=== PATIENT | female | born 1950 | race Caucasian/White ===

== ENCOUNTER 2022-05-21 05:56 | Observation (INO) | payer OTHER ==
--- NOTE | 2022-05-16 09:24 | RAD REPORT ---
EXAM DESCRIPTION: RAD - Chest Pa And Lat (2 Views) - 05/16/2022 9:03 am CLINICAL HISTORY: pre op for surgery Chest pain. COMPARISON: Chest Pa And Lat (2 Views) dated 12/23/2019; Chest Pa And Lat (2 Views) dated 04/23/2017 FINDINGS: Mild interstitial pulmonary edema. The heart is moderately enlarged. No displaced fracture s. IMPRESSION: Mild CHF.
[2022-05-16 09:26] LABS: Absolute Lymphocytes (CBC) 2.7 K/uL (0.7-4.9); Hematocrit 37.6 % (36.0-45.0); Lymphocytes % 31.7 % (15.3-44.8); MCV 85.8 fL (80-100); MPV 9.5 fL (7.6-11.3); RBC Red Blood Cell Count 4.38 M/uL (3.86-4.86)
[2022-05-16 09:30] LABS: Protime INR 0.98
[2022-05-16 09:49] LABS: Specific Gravity 1.006 (1.005-1.030); Urine Bilirubin NEGATIVE (Negative); Urine Blood Negative (Negative); Urine Clarity Clear (Clear); Urine Color Colorless (Yellow); Urine Glucose NEGATIVE (Negative); Urine Protein NEGATIVE (Negative); Urine Urobilinogen Normal (Normal)
[2022-05-16 09:51] LABS: Albumin 4.2 g/dL (3.4-5.0); Bilirubin Total 0.7 mg/dL (0.2-1.0); Protein, Total 8.4 g/dL (6.4-8.2)
[2022-05-20 08:33] LABS: SARS-CoV-2 Antigen Rapid Res Negative (Negative)
[2022-05-21] MEDS ORDERED: TRANEXAMIC ACID 1,000 MG/10 ML VIAL IV ONE (06:23)
[2022-05-21] MEDS ORDERED: CELECOXIB 100 MG CAPSULE ONE (06:25)
[2022-05-21] MEDS ORDERED: CEFAZOLIN SODIUM 2 GM/VIAL ONE (06:26)
[2022-05-21] MEDS ORDERED: Oxycodone HCl/Acetaminophen 1 TAB TAB ONE (06:26)
[2022-05-21] MEDS ORDERED: GABAPENTIN 100 MG CAP ONE (06:26)
[2022-05-21] MEDS ORDERED: Ringers Lactate 1,000 ML IV ONE ×2 (06:27→08:48)
[2022-05-21] MEDS ORDERED: ACETAMINOPHEN 500 MG TAB ONE (06:27)
[2022-05-21] MEDS ORDERED: LIDOCAINE 1% MPF 5 ML VIAL ONE (06:28)
[2022-05-21] MEDS ORDERED: dexAMETHasone 10 MG/ML VIAL ONE ×2 (06:28→07:41)
[2022-05-21] MEDS ORDERED: MIDAZOLAM HCL 2 MG/2 ML INJ ONE (06:29)
[2022-05-21] MEDS ORDERED: EPINEPHRINE/PF 1 MG/ML AMP ONE (06:29)
[2022-05-21] MEDS ORDERED: HYDROMORPHONE HCL 1 MG/ML INJ ONE (06:29)
[2022-05-21] MEDS ORDERED: FENTANYL CITR 100 MCG/2 ML ONE (06:29)
[2022-05-21] MEDS ORDERED: BUPIVACAINE 0.25% PF 30 ML VIAL ONE (06:30)
[2022-05-21] MEDS ORDERED: LIDOCAINE 2% MPF 5 ML VIAL ONE (07:29)
[2022-05-21] MEDS ORDERED: propofoL 200 MG/20 ML VIAL IV ONE (07:29)
[2022-05-21] MEDS ORDERED: NS 0.9% VIAL 20 ML ONE ×2 (07:37→07:49)
[2022-05-21] MEDS ORDERED: ONDANSETRON 4 MG/2 ML VIAL ONE (07:42)
[2022-05-21] MEDS ORDERED: KETAMINE HCL 500 MG/5 ML VIAL ONE (07:49)
[2022-05-21] MEDS ORDERED: DOCUSATE NA 100 MG CAP PO PRN (10:04)
[2022-05-21] MEDS ORDERED: ONDANSETRON 4 MG/2 ML VIAL IV PRN (10:04)
--- NOTE | 2022-05-21 10:13 | P.BOP ---
Preoperative diagnosis: left knee djd Postoperative diagnosis: same Primary procedure: left tka Estimated blood loss: 100 ccs Anesthesia: General Complications: None Transferred to: Recovery Room Condition: Good
--- OUTSIDE RECORDS SUMMARY | 2022-05-21 10:45 | XMS REPORT | Continuity of Care Document ---
:1950 Author Organization [facility] t Address [address] [place] [address] Care Team Providers Name Role Phone Niall Pederson Attending Clinician Unavailable Aleta Tellez Attending Clinician Unavailable Jorge Jacobs Attending Clinician Mazin STEWART, Deloris Attending Clinician Unavailable Jazmin PIZARRO, Nela Hannon Attending Clinician Gab Gill MD Attending Clinician [facility] Attending Clinician Unavailable Colleen Perea Attending Clinician Doctor Unassigned, [place] Attending Clinician Unavailable Aleta Tellez Admitting Clinician Unavailable J Carlos Rodrigez Admitting Clinician Unavailable Gab Gill MD Admitting Clinician Payers Payer Name Policy Type Policy Number Effective Date Expiration Date S fl[place] [employer] MEDICARE ADV [id number] 2019 00:00:00 Problems Condition Condition Condition Status Onset Resolution Last Treating Co mments Source Name Details Category Date Date Treatment Clinician Date Acute on Acute on Disease Active Unive rs chronic chronic 7-25 [place] 00 Medical (congestiv (congestiv Br anch e heart e heart failure), failure), NYHA class NYHA class 3 3 Elevated Elevated Disease Active Unive rs troponin I troponin I 7-25 it y of level level 00:00: [place] [facility] Essential Essential Disease Active Uni vers hypertensi hypertensi 7-25 it y of on on 00:00: [place] [facility] VHD VHD Disease Active Univers (valvular (valvular 7-25 ity of heart heart 00:00: [place] disease) disease) 00 Medica l Branch Pulmonary Pulmonary Disease Active Uni vers hypertensi hypertensi 7-25 it y of on on 00:00: [place] 00 Medical Branch NSTEMI NSTEMI Disease Active Univers (non-ST (non-ST 7-24 ity of elevated elevated 00:00: [place] myocardial myocardial 00 Me dical infarction infarction Br anch ) ) WEIGHT WEIGHT Diagnosis Active 2011-04-16 Me moria LOSS LOSS -17 14:34:00 l Active 00:00: Edgar 04/16/2011 00 [facility] [place] History of History 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:31:24 l disorder disorder Chirag n (context-d (context-d ependent ependent category) category) Active Problem 10/14/2020 [facility] Hypertensi Hypertens Problem Active 2020-10-14 Memoria ve lavonne 01:31:24 l disorder, disorder, Herm jeff systemic systemic arterial arterial (disorder) (disorder) Active Problem 10/14/2020 [facility] Hyperlipid Hyperlipi Problem Active 2020-10-14 Memoria emia demia 01:31:24 l (disorder) (disorder) He rmann Active Problem 10/14/2020 [facility] Hypothyroi Hypothyro Problem Active 2020-10-14 Memoria dism idism 01:31:24 l (disorder) (disorder) He rmann Active Problem 10/14/2020 [facility] Lumbar Lumbar Problem Active 2020-10-14 Chavez sukhdeep radiculopa radiculopa 01:31:24 l thy thy Edgar (disorder) (disorder) Active Problem 10/14/2020 [facility] Neuropathy Neuropath Problem Active 2020-10-14 Memoria of lower y of lower 01:31:24 l limb limb [place] (disorder) (disorder) Active Problem 10/14/2020 [facility] Obese Obese Problem Active 2020-10-14 Memor ia class I class I 01:31:24 l (finding) (finding) Annabelle aguilar Active Problem 10/14/2020 [facility] Paresthesi Paresthes Problem Active 2020-10-14 Memoria a ia 01:31:24 l (finding) (finding) Annabelle aguilar Active Problem 10/14/2020 [facility] [id number] Primary Problem Comm on osteoarthr Spirit itis of - [facility] left knee [facility] [id number] Pain, [place] [id number] joint, [facility] knee, left - [facility] No known No known Disease Unive rs active active ity of problems problems [facility] Fibromyalg Fibromyal Problem Active 2020-10-14 Memoria ia jeff 01:31:24 l (disorder) (disorder) Khanh luceroann Active Problem 10/14/2020 [facility] Allergies, Adverse Reactions, Alerts Allergy Allergy Status Severity Reaction(s) Onset Inactive Treating Comm ents Source Name Type Date Date Clinician No Known DA Active [facility] [place] No Known DA Active [facility] [place] NO KNOWN Drug Active Univers ALLERGIE Class [facility] Social History Social Habit Start Date Stop Date Quantity Comments Source History of Tobacco [facility] Sex Assigned At [facility] miguel - [facility] Exposure to Yes [facility] SARS-CoV-2 (event) Medica l Branch Social History 2019-06-18 2019-06-18 [facility] marsha 19:50:10 19:50:10 Smoking Status Start Date Stop Date Source Never Smoker [facility] Medications Ordered Filled Start Stop Current Ordering Indication Dosage Frequency Signature Comments Components Source Medication Medication Date Date Medication? Clinician (SIG) Name Name spironolact Yes [id number] 50mg Take 1 Univers one 50 mg 7-26 tablet by ity o f tablet 00:00: mouth [place] 00 daily. Medical Branch spironolact Yes [id number] 50mg Take 1 Univers one 50 mg 7-26 tablet by ity o f tablet 00:00: mouth [place] 00 daily. [facility] aspirin 81 2020-0 Yes 81mg Take 81 mg U nivers mg chewable 7-25 by mouth ity of tablet 20:38: daily. [address] aspirin 81 2020-0 Yes 81mg Take 81 mg U nivers mg chewable 7-25 by mouth ity of tablet 20:38: daily. [address] spironolact 2020-0 Yes 50mg 50 mg, Univ ers one 7-25 Oral, ity of (ALDACTONE) 14:00: [place] 50 00 First dose Medi betsey mg on [facility] 10/23/19 at 0900, Until Discontinu ed, Routine metoprolol 2020-0 Yes 50mg 50 mg, Unive rs succinate 7-25 Oral, ity of XL (TOPROL 14:00: DAILY, [place] XL) tablet 00 First dose Med ical 50 mg on [facility] 10/23/19 at 0900, Until Discontinu ed, Routine liothyronin 2020-0 Yes 10ug 10 mcg, Uni vers e (CYTOMEL) 7-25 Oral, ity of tablet 10 14:00: DAILY, [place] mcg 00 First dose Medical on [facility] 10/23/19 at 0900, Until Discontinu ed, Routine estradiol 2020-0 Yes 1mg 1 mg, Univers (ESTRACE) 7-25 Oral, ity of tablet 1 mg 14:00: DAILY, [place] 00 First dose Medical on [facility] 10/23/19 at 0900, Until Discontinu ed, Routine atorvastati 2020-0 Yes 20mg 20 mg, Univ ers n (LIPITOR) 7-25 Oral, ity of tablet 20 14:00: DAILY, [place] mg 00 First dose Medical on [facility] 10/23/19 at 0900, Until Discontinu ed, Routine aspirin 2020-0 Yes 81mg 81 mg, Univers chewable 7-25 Oral, ity of tablet 81 14:00: DAILY, [place] mg 00 First dose Medical on [facility] 10/23/19 at 0900, Until Discontinu ed, Routine Sliding 2020-0 Yes Subcutaneo Univ ers Scale 7-25 us, AC+HS, ity of Insulin - 12:30: [place] Aspart 00 on [facility] (NOVOLOG) + 10/23/19 at Br anch Fsbg 0730, Testing Until Discontinu ed, Routine levothyroxi 2020-0 Yes 137ug 137 mcg, U nivers ne 7-25 Oral, ity of (SYNTHROID) 11:00: QAM-0600, [place] tablet 137 00 First dose Med ical mcg on Sat Branch 10/23/19 at 0600, Until Discontinu ed, Routine pregabalin 2020-0 Yes 100mg 100 mg, Uni vers (LYRICA) 7-25 Oral, TID, ity o f capsule 100 01:00: First dose [place] mg 00 on Fri Medical 10/22/19 at Branch 2000, Until Discontinu ed, Routine
hotel staff member approving Restricted medication : MEGADC furosemide 2020-0 Yes [id number] 40mg Take 1 Univers 40 mg 7-25 tablet by ity of tablet 00:00: mouth [place] 00 every Medical morning Branch and evening. furosemide 2020-0 Yes [id number] 40mg Take 1 Univers 40 mg 7-25 tablet by ity of tablet 00:00: mouth [place] 00 every Medical morning Branch and evening. furosemide 2020-0 Yes 40mg 40 mg, IV Un darryn (LASIX) 10-21 Push, ity of injection 22:00: Q12H, [place] 40 mg 00 First dose Medical on Fri Branch 10/22/19 at 1700, Until Discontinu ed, Routine traMADol 2020-0 2020- No 50mg 50 mg, Univer s (ULTRAM) 10-21 07- Oral, ity of tablet 50 21:48: 21:47 Q8HPRN, [place] mg 19 :19 Starting Medical Fri Branch 10/22/19 at 1648, Until 10/24/19 at 1647, Routine, Pain (scale 4-6) HYDROcodone 2020-0 Yes 1{tbl} 1 tablet, Univers -acetaminop 10-21 Oral, ity of hen (NORCO) 21:48: Q6HPRN, Rob as 10-325 mg 13 Starting Medica l tablet 1 Fri Branch tablet 10/22/19 at 1648, Until Discontinu ed, Routine, Pain (scale 7-10) acetaminoph 2020-0 Yes 650mg 650 mg, Un darryn en 10-21 Oral, ity of (TYLENOL) 21:47: Q6HPRN, [place] tablet 650 54 Starting Medic al mg Fri [place] 10/22/19 at 1647, Until Discontinu ed, Routine, Pain (scale 1-3) iohexol 2019-0 2020- No 100mL 100 mL, Unive rs (OMNIPAQUE 10-21 Intravenou it y of 350 19:00: 18:36 s, ONCE, 1 [place] BULK-100 00 :00 dose, Fri Medica l mL) 10/22/19 at Branch injection 1400, 100 mL Routine dexamethaso 2019-2019- No 10mg 10 mg, IV Univers ne 10-21 Push, ity of (DECADRON 17:15: 16:39 ONCE, 1 [place] PHOSPHATE) 00 :00 dose, Fri Medi betsey injection 10/22/19 at Bran ch 10 mg 1215, STAT hydralAZINE 2019- 2020- No 10mg 10 mg, Uni vers (APRESOLINE 10-21 Intravenou i ty of ) injection 17:15: 16:39 s, ONCE [place] 10 mg 00 :00 NOW, 1 Medical dose, Fri [place] 10/22/19 at 1215, Routine aspirin 2019- 2020- No 325mg 325 mg, Unive rs tablet 325 10-21 Oral, ity of mg 17:15: 16:39 ONCE, 1 [place] 00 :00 dose, Fri Medical 10/22/19 at Branch 1215, STAT albuterol 2019-0 2020- No [id number] 2{puff} Inhale 2 Univers (VENTOLIN 10-21 08-24 Puffs ity of HFA) 90 00:00: 04:59 every 6 [place] mcg/actuati 00 :00 (six) Medical on inhaler hours as Branc h needed for Shortness of Breath for up to 30 days. albuterol 2020-0 2020- No [id number] 2{puff} Inhale 2 Univers (VENTOLIN 7-24 08-24 Puffs ity of HFA) 90 00:00: 04:59 every 6 [place] mcg/actuati 00 :00 (six) Medical on inhaler hours as Branc h needed for Shortness of Breath for up to 30 days. albuterol 2020-0 2020- No [id number] 2{puff} Inhale 2 Univers (VENTOLIN 7- 08-24 Puffs ity of HFA) 90 00:00: 04:59 every 6 [place] mcg/actuati 00 :00 (six) Medical on inhaler hours as Branc h needed for Shortness of Breath for up to 30 days. albuterol 2019-0 2020- No [id number] 2{puff} Inhale 2 Univers (VENTOLIN 7-24 08-24 Puffs ity of HFA) 90 00:00: 04:59 every 6 [place] mcg/actuati 00 :00 (six) Medical on inhaler hours as Branc h needed for Shortness of Breath for up to 30 days. albuterol 2019-0 2020- No [id number] 2{puff} Inhale 2 Univers (VENTOLIN 7-24 08-24 Puffs ity of HFA) 90 00:00: 04:59 every 6 [place] mcg/actuati 00 :00 (six) Medical on inhaler hours as Branc h needed for Shortness of Breath for up to 30 days. albuterol 2019-0 2019- No [id number] 2{puff} Inhale 2 Univers (VENTOLIN 7-24 08-24 Puffs ity of HFA) 90 00:00: 04:59 every 6 [place] mcg/actuati 00 :00 (six) Medical on inhaler hours as Branc h needed for Shortness of Breath for up to 30 days. albuterol 2019-2019- No [id number] 2{puff} Inhale 2 Univers (VENTOLIN 7-24 08-24 Puffs ity of HFA) 90 00:00: 04:59 every 6 [place] mcg/actuati 00 :00 (six) Medical on inhaler hours as Branc h needed for Shortness of Breath for up to 30 days. metoprolol 2020-0 Yes 50mg Take 50 mg U nivers succinate 7-23 by mouth ity of XL 50 mg 24 00:00: daily. [place] hr tablet 00 Medical Branch metoprolol 2020-0 Yes 50mg Take 50 mg U nivers succinate 7-23 by mouth ity of XL 50 mg 24 00:00: daily. [place] hr tablet 00 Medical Branch metoprolol 2020-0 Yes Univers succinate 7-23 ity of XL 50 mg 24 00:00: [place] hr tablet 00 Medical Branch metoprolol 2020-0 Yes Univers succinate 7-23 ity of XL 50 mg 24 00:00: [place] hr tablet 00 Medical Branch metoprolol 2020-0 Yes Univers succinate 7-23 ity of XL 50 mg 24 00:00: [place] hr tablet 00 Medical Branch metoprolol 2020-0 Yes Univers succinate 7-23 ity of XL 50 mg 24 00:00: [place] hr tablet 00 Medical Branch metoprolol 2020-0 Yes Univers succinate 7-23 ity of XL 50 mg 24 00:00: [place] hr tablet 00 Medical Branch meloxicam 2020-0 Yes TAKE 1 Univer s 7.5 mg 7-16 TABLET BY ity of tablet 00:00: MOUTH [place] 00 TWICE A Medical DAY Branch NEEDED meloxicam 2020-0 Yes TAKE 1 Univer s 7.5 mg 7-16 TABLET BY ity of tablet 00:00: MOUTH [place] 00 TWICE A Medical DAY Branch NEEDED meloxicam 2020-0 Yes TAKE 1 Univer s 7.5 mg 7-16 TABLET BY ity of tablet 00:00: MOUTH [place] 00 TWICE A Medical DAY Branch NEEDED meloxicam 2020-0 Yes TAKE 1 Univer s 7.5 mg 7-16 TABLET BY ity of tablet 00:00: MOUTH [place] 00 TWICE A Medical DAY Branch NEEDED meloxicam 2020-0 Yes TAKE 1 Univer s 7.5 mg 7-16 TABLET BY ity of tablet 00:00: MOUTH [place] 00 TWICE A Medical DAY Branch NEEDED meloxicam 2020-0 Yes TAKE 1 Univer s 7.5 mg 7-16 TABLET BY ity of tablet 00:00: MOUTH [place] 00 TWICE A Medical DAY Branch NEEDED meloxicam 2020-0 Yes TAKE 1 Univer s 7.5 mg 7-16 TABLET BY ity of tablet 00:00: MOUTH [place] 00 TWICE A Medical DAY Branch NEEDED hydroCHLORO 2020-0 Yes 12.5mg Take 12.5 Univers thiazide 7-10 mg by ity of 12.5 mg 00:00: mouth [place] tablet 00 daily. Medical Branch hydroCHLORO 2020-0 Yes 12.5mg Take 12.5 Univers thiazide 7-10 mg by ity of 12.5 mg 00:00: mouth [place] tablet 00 daily. Medical Branch hydroCHLORO 2020-0 Yes 12.5mg Take 12.5 Univers thiazide 7-10 mg by ity of 12.5 mg 00:00: mouth [place] tablet 00 daily. Medical Branch hydroCHLORO 2020-0 Yes 12.5mg Take 12.5 Univers thiazide 7-10 mg by ity of 12.5 mg 00:00: mouth [place] tablet 00 daily. Medical Branch hydroCHLORO 2020-0 Yes 12.5mg Take 12.5 Univers thiazide 7-10 mg by ity of 12.5 mg 00:00: mouth [place] tablet 00 daily. Medical Branch hydroCHLORO 2020-0 2020- No 12.5mg Take 12.5 Univers thiazide 7-10 07-25 mg by ity of 12.5 mg 00:00: 00:00 mouth [place] tablet 00 :00 daily. Medical Indication Branch s: Taking PRN for swelling in legs pregabalin 2020-0 Yes TAKE 1 Unive rs 100 mg 7-04 CAPSULE BY ity of capsule 00:00: MOUTH THREE Medical TIMES A Branch DAY pregabalin 2020-0 Yes TAKE 1 Unive rs 100 mg 7-04 CAPSULE BY ity of capsule 00:00: MOUTH THREE Medical TIMES A Branch DAY pregabalin 2020-0 Yes TAKE 1 Unive rs 100 mg 7-04 CAPSULE BY ity of capsule 00:00: MOUTH THREE Medical TIMES A Branch DAY pregabalin 2020-0 Yes TAKE 1 Unive rs 100 mg 7-04 CAPSULE BY ity of capsule 00:00: MOUTH THREE Medical TIMES A Branch DAY pregabalin 2020-0 Yes TAKE 1 Unive rs 100 mg 7-04 CAPSULE BY ity of capsule 00:00: MOUTH THREE Medical TIMES A Branch DAY pregabalin 2020-0 Yes TAKE 1 Unive rs 100 mg 7-04 CAPSULE BY ity of capsule 00:00: MOUTH THREE Medical TIMES A Branch DAY pregabalin 2020-0 Yes TAKE 1 Unive rs 100 mg 7-04 CAPSULE BY ity of capsule 00:00: MOUTH THREE Medical TIMES A Branch DAY levothyroxi 2020-0 Yes 137ug Take 137 U nivers ne 137 mcg 6-06 mcg by ity of tablet 00:00: mouth. Medical Branch levothyroxi 2020-0 Yes 137ug Take 137 U nivers ne 137 mcg 6-06 mcg by ity of tablet 00:00: mouth. Medical Branch levothyroxi 2020-0 Yes 137ug Take 137 U nivers ne 137 mcg 6-06 mcg by ity of tablet 00:00: mouth. Medical Branch levothyroxi 2020-0 Yes 137ug Take 137 U nivers ne 137 mcg 6-06 mcg by ity of tablet 00:00: mouth. [facility] levothyroxi 2020-0 Yes 137ug Take 137 U nivers ne 137 mcg 6-06 mcg by ity of tablet 00:00: mouth. [facility] levothyroxi 2020-0 Yes 137ug Take 137 U nivers ne 137 mcg 6-06 mcg by ity of tablet 00:00: mouth. [facility] levothyroxi 2020-0 Yes 137ug Take 137 U nivers ne 137 mcg 6-06 mcg by ity of tablet 00:00: mouth. [facility] estradiol 1 2020-0 Yes 1mg Take 1 mg U nivers mg tablet 5-20 by mouth ity of 00:00: daily. [facility] estradiol 1 2020-0 Yes 1mg Take 1 mg U nivers mg tablet 5-20 by mouth ity of 00:00: daily. [facility] estradiol 1 2020-0 Yes 1mg Take 1 mg U nivers mg tablet 5-20 by mouth ity of 00:00: daily. [facility] estradiol 1 2020-0 Yes 1mg Take 1 mg U nivers mg tablet 5-20 by mouth ity of 00:00: daily. [facility] estradiol 1 2020-0 Yes 1mg Take 1 mg U nivers mg tablet 5-20 by mouth ity of 00:00: daily. [facility] estradiol 1 2020-0 Yes 1mg Take 1 mg U nivers mg tablet 5-20 by mouth ity of 00:00: daily. [facility] estradiol 1 2020-0 Yes 1mg Take 1 mg U nivers mg tablet 5-20 by mouth ity of 00:00: daily. [facility] liothyronin 2020-0 Yes 10ug Take 10 Uni vers e 5 mcg 5-03 mcg by ity of tablet 00:00: mouth daily. [facility] liothyronin 2020-0 Yes 10ug Take 10 Uni vers e 5 mcg 5-03 mcg by ity of tablet 00:00: mouth daily. [facility] liothyronin 2020-0 Yes 10ug Take 10 Uni vers e 5 mcg 5-03 mcg by ity of tablet 00:00: mouth daily. Medical Branch liothyronin 2020-0 Yes 10ug Take 10 Uni vers e 5 mcg 5-03 mcg by ity of tablet 00:00: mouth daily. Medical Branch liothyronin 2020-0 Yes 10ug Take 10 Uni vers e 5 mcg 5-03 mcg by ity of tablet 00:00: mouth daily. Medical Branch liothyronin 2020-0 Yes 10ug Take 10 Uni vers e 5 mcg 5-03 mcg by ity of tablet 00:00: mouth daily. Medical Branch liothyronin 2020-0 Yes 10ug Take 10 Uni vers e 5 mcg 5-03 mcg by ity of tablet 00:00: mouth daily. [facility] atorvastati 2020-0 Yes 20mg Take 20 mg Univers n 20 mg 5-02 by mouth ity of tablet 00:00: daily. [facility] atorvastati 2020-0 Yes 20mg Take 20 mg Univers n 20 mg 5-02 by mouth ity of tablet 00:00: daily. [facility] atorvastati 2020-0 Yes 20mg Take 20 mg Univers n 20 mg 5-02 by mouth ity of tablet 00:00: daily. [facility] atorvastati 2020-0 Yes 20mg Take 20 mg Univers n 20 mg 5-02 by mouth ity of tablet 00:00: daily. Medical Branch atorvastati 2020-0 Yes 20mg Take 20 mg Univers n 20 mg 5-02 by mouth ity of tablet 00:00: daily. [facility] atorvastati 2020-0 Yes 20mg Take 20 mg Univers n 20 mg 5-02 by mouth ity of tablet 00:00: daily. [facility] atorvastati 2020-0 Yes 20mg Take 20 mg Univers n 20 mg 5-02 by mouth ity of tablet 00:00: daily. [facility] Lyrica 2020-0 Yes 50 mg, PO, Memor ia 4-23 TID, 0 l 13:33: Refill(s) Lyrica 2020-0 Yes 50 mg, PO, Memor ia 4-23 TID, 0 l 13:33: Refill(s) metoprolol 2020-0 Yes 50 mg = 1 Me moria succinate 3-20 cap, PO, l 50 mg oral 19:50: Daily, 0 Her duran capsule, 00 Refill(s) extended release Estradiol 1 2020-0 Yes 1 mg = 1 Me moria MG Oral 3-20 tab, PO, l Tablet 19:50: Daily, 0 [place] 00 Refill(s) atorvastati 2020-0 Yes 20 mg = 1 M emoria n 20 mg 3-20 tab, PO, l oral tablet 19:50: Daily, 0 He rmann 00 Refill(s) liothyronin 2020-0 Yes 5 Memori a e 5 mcg 3-20 microgram l oral tablet 19:50: = 1 tab, He rmann 00 PO, BID, 0 Refill(s) levothyroxi 2020-0 Yes 137 Memori a ne 137 mcg 3-20 microgram l (0.137 mg) 19:50: = 1 tab, Her duran oral tablet 00 PO, Daily, 0 Refill(s) Aspirin 81 2020-0 Yes 81 mg = 1 Me moria MG Enteric 3-20 tab, PO, l Coated 19:50: Daily, # [place] Tablet 00 90 tab, 3 Refill(s) metoprolol 2020-0 Yes 50 mg = 1 Me moria succinate 3-20 cap, PO, l 50 mg oral 19:50: Daily, 0 Her duran capsule, 00 Refill(s) extended release Estradiol 1 2020-0 Yes 1 mg = 1 Me moria MG Oral 3-20 tab, PO, l Tablet 19:50: Daily, 0 [place] 00 Refill(s) atorvastati 2020-0 Yes 20 mg = 1 M emoria n 20 mg 3-20 tab, PO, l oral tablet 19:50: Daily, 0 He r[place] 00 Refill(s) liothyronin 2020-0 Yes 5 Memori a e 5 mcg 3-20 microgram l oral tablet 19:50: = 1 tab, He rmann 00 PO, BID, 0 Refill(s) levothyroxi 2020-0 Yes 137 Memori a ne 137 mcg 3-20 microgram l (0.137 mg) 19:50: = 1 tab, Her duran oral tablet 00 PO, Daily, 0 Refill(s) Aspirin 81 2020-0 Yes 81 mg = 1 Me moria MG Enteric 3-20 tab, PO, l Coated 19:50: Daily, # [place] Tablet 00 90 tab, 3 Refill(s) meloxicam 2020-0 Yes 7.5 mg = 1 Me moria 7.5 mg oral 3-20 tab, PO, l tablet 19:49: Daily, PRN Marie nn 00 Pain, # 30 tab, 1 Refill(s) meloxicam 2020-0 Yes 7.5 mg = 1 Me moria 7.5 mg oral 3-20 tab, PO, l tablet 19:49: Daily, PRN Marie nn 00 Pain, # 30 tab, 1 Refill(s) Furosemide Furosemide No Furosemide Losartan Losartan No Losartan Potassium Potassium Potassium Atorvastati Atorvastati No Atorvastat n Calcium n Calcium in Calcium Levothyroxi Levothyroxi No Levothyrox ne Sodium ne Sodium ine Sodium Metoprolol Metoprolol No Metoprolol Succinate Succinate Succinate Liothyronin Liothyronin No Liothyroni e Sodium e Sodium ne Sodium Pregabalin Pregabalin No Pregabalin Vital Signs Vital Name Observation Time Observation Value Comments Source height 2022-04-18 14:30:00 62.5 [in_i] [facility] weight 2022-04-18 14:30:00 181 [lb_av] [facility] temperature 2022-04-18 14:30:00 97.6 [degF] [facility] bmi 2022-04-18 14:30:00 32.57 kg/m2 [facility] blood pressure 2022-04-18 14:30:00 134 mm[Hg] [facility] Spirit - systolic [facility] blood pressure 2022-04-18 14:30:00 86 mm[Hg] [facility] Spirit - diastolic [facility] Systolic blood 2019-10-23 16:10:00 116 mm[Hg] Univer sity [facility] Diastolic blood 2019-10-23 16:10:00 58 mm[Hg] [facility] 2019-10-23 16:10:00 69 /min [facility] Body temperature 2019-10-23 16:10:00 37.06 Katalina [facility] Res[facility] rate 2019-10-23 16:10:00 18 /min Univ ersity [facility] [place] [facility] Oxygen saturation in 2019-10-23 16:10:00 92 /min University of Arterial blood by [facility] Pulse oximetry Branch Body weight 2019-10-23 11:30:00 80.876 kg [facility] [place] [facility] BMI 2019-10-23 11:30:00 32.61 kg/m2 [facility] [place] [facility] Body height 2019-10-22 19:52:00 157.5 cm [facility] [place] [facility] Systolic blood 2019-10-23 16:10:00 116 mm[Hg] Univer sity of pressure [place] [facility] Diastolic blood 2019-10-23 16:10:00 58 mm[Hg] Unive rsity of pressure [place] [facility] Heart rate 2019-10-23 16:10:00 69 /min [facility] [place] [facility] Body temperature 2019-10-23 16:10:00 37.06 Katalina Univ ersity [facility] [place] [facility] Respiratory rate 2019-10-23 16:10:00 18 /min Univ [facility] [place] [facility] Oxygen saturation in 2019-10-23 16:10:00 92 /min University of Arterial blood by [facility] Pulse oximetry Branch Body weight 2019-10-23 11:30:00 80.876 kg [facility] [place] [facility] BMI 2019-10-23 11:30:00 32.61 kg/m2 [facility] [place] [facility] Body height 2019-10-22 19:52:00 157.5 cm [facility] [place] [facility] Oxygen saturation in 2019-10-22 14:43:00 93 /min University of Arterial blood by [facility] Pulse oximetry Branch Systolic blood 2019-10-22 14:18:00 169 mm[Hg] Univer sity of pressure [place] [facility] Diastolic blood 2019-10-22 14:18:00 82 mm[Hg] Unive rsity of pressure [place] [facility] Heart rate 2019-10-22 14:18:00 107 /min [facility] [place] [facility] Respiratory rate 2019-10-22 14:18:00 18 /min Univ [facility] [place] [facility] Body temperature 2019-10-22 14:11:00 36.22 Katalina Univ [facility] [place] [facility] Body height 2019-10-22 14:11:00 203.2 cm [facility] [place] [facility] Body weight 2019-10-22 14:11:00 74.844 kg Universi ty [facility] [place] BMI 2019-10-22 14:11:00 18.13 kg/m2 Universi ty [facility] Oxygen saturation in 2019-10-22 14:43:00 93 /min [facility] Arterial blood by [facility] Pulse oximetry Branch Systolic blood 2019-10-22 14:18:00 169 mm[Hg] Univer sity of pressure [facility] [place] [facility] Diastolic blood 2019-10-22 14:18:00 82 mm[Hg] Unive rsity of pressure [facility] Heart rate 2019-10-22 14:18:00 107 /min Universi ty of [facility] Respiratory rate 2019-10-22 14:18:00 18 /min [facility] Body temperature 2019-10-22 14:11:00 36.22 Katalina [facility] Body height 2019-10-22 14:11:00 203.2 cm Universi ty [facility] [place] Body weight 2019-10-22 14:11:00 74.844 kg [facility] BMI 2019-10-22 14:11:00 18.13 kg/m2 [facility] [place] [facility] Systolic (mm Hg) 2019-09-02 13:54:00 Chavez rial Edgar Diastolic (mm Hg) 2019-09-02 13:54:00 Mem orial [facility] Heart Rate 2019-09-02 13:54:00 [facility] Respitory Rate 2019-09-02 13:54:00 Memori al [facility] Height 2019-09-02 13:54:00 157.48 cm [facility] Weight 2019-09-02 13:54:00 [facility] BMI Calculated 2019-09-02 13:54:00 Memori al [facility] Temperature Oral (F) 2019-09-02 13:54:00 98.2 F [facility] Systolic (mm Hg) 2019-07-22 13:25:00 Chavez rial Edgar Diastolic (mm Hg) 2019-07-22 13:25:00 Mem orial [facility] Heart Rate 2019-07-22 13:25:00 [facility] Respitory Rate 2019-07-22 13:25:00 Memori al [facility] Temperature Oral (F) 2019-07-22 13:25:00 97.7 F [facility] Height 2019-07-22 13:25:00 157.48 cm [facility] Edgar Weight 2019-07-22 13:25:00 Tania Alanisann BMI Calculated 2019-07-22 13:25:00 Andrés khan [facility] Systolic (mm Hg) 2019-06-18 19:15:00 Chavez Alanisann Diastolic (mm Hg) 2019-06-18 19:15:00 Sakina garciaal [facility] Heart Rate 2019-06-18 19:15:00 Tania [facility] Respitory Rate 2019-06-18 19:15:00 Andrés khan [facility] Height 2019-06-18 19:15:00 160.02 cm [facility] Edgar Weight 2019-06-18 19:15:00 Tania Alanisann BMI Calculated 2019-06-18 19:15:00 Andrés Reed Procedures Procedure Date / Time Performing Clinician Source Performed POCT GLUCOSE (AUTOMATED) 2019-10-23 16:12:00 Gab Gill [facility] POCT GLUCOSE (AUTOMATED) 2019-10-23 12:53:00 Gab Gill [facility] TROPONIN I 2019-10-23 08:58:00 Kacy Castelan Nati [facility] BASIC METABOLIC PANEL 2019-10-23 08:58:00 Kacy Castelan [facility] (NA, K, CL, CO2, Medical Branch GLUCOSE, BUN, CREATININE, CA) CBC WITH DIFF 2019-10-23 08:58:00 Flip Kacy Nati [facility] N-TERMINAL PRO-BNP 2019-10-23 08:58:00 [facility] FREE T3 2019-10-23 08:58:00 Gab Gill [place] [facility] [place] [facility] TROPONIN I 2019-10-23 03:45:00 Flip Kacy Nati [facility] TROPONIN I 2019-10-22 22:05:00 Flip Kacy [facility] ECHO ROUTINE W/DOPPLER 2019-10-22 20:34:01 Anahi Alejandre [facility] CT CHEST PULMONARY 2019-10-22 18:53:20 Nela Wu [facility] ANGIOGRAM [facility] LACTIC ACID WHOLE BLOOD 2019-10-22 16:44:00 Nela Wu [facility] FREE T4 2019-10-22 16:34:00 Gab Gill o f [facility] PROTHROMBIN TIME / INR 2019-10-22 16:34:00 Nela Wu [facility] D-DIMER 2019-10-22 16:34:00 Nela Wu [facility] ACTIVATED PARTIAL 2019-10-22 16:34:00 Nela Wu [facility] THRMPLAS [facility] FIBRINOGEN 2019-10-22 16:34:00 Nela Wu [facility] LACTATE DEHYDROGENASE 2019-10-22 16:33:00 Nela Wu [facility] URINALYSIS 2019-10-22 16:33:00 Nela Wu [facility] XR CHEST 1 VW COVID 2019-10-22 16:00:28 Nela Wu [facility] LIPASE 2019-10-22 15:53:00 Nela Wu [facility] TROPONIN I 2019-10-22 15:53:00 Nela Wu [facility] THYROID STIMULATING 2019-10-22 15:53:00 Kacy Castelan [facility] HORMONE [facility] COMP. METABOLIC PANEL 2019-10-22 15:53:00 Nela Wu [facility] ([id number]) [facility] LIPID PANEL 2019-10-22 15:53:00 Kacy Castelan [facility] ([id number])(TOTAL Medical Branch CHOLESTEROL, TRIGLYCERIDES, HDL) CBC WITH DIFF 2019-10-22 15:53:00 Nela Wu [facility] GLYCOSYLATED HEMOGLOBIN 2019-10-22 15:53:00 Kacy Castelan [facility] (A1C) [facility] N-TERMINAL PRO-BNP 2019-10-22 15:53:00 Nela Wu [facility] COVID-19 (ID NOW RAPID 2019-10-22 15:53:00 Nela Wu [facility] TESTING) [facility] EKG-12 LEAD 2019-10-22 15:51:43 Nela Wu [facility] CONSENT/REFUSAL FOR 2019-10-22 15:10:20 Doctor Unassigned, No Un [facility] DIAGNOSIS AND TREATMENT Name Medical Branch Encounters Start End Encounter Admission Attending Care Care Encounter Source Date/Time Date/Time Type Type Clinicians Facility Department ID 2022-04-18 Outpatient [facility] [id number] Common 13:25:03 [id number] [facility] 2021-01-26 Emergency [facility] [id number] [facility] 2022-04-18 2022-04-18 [facility] [id number] Co mmon 00:00:00 00:00:00 VISIT NEW Spir it PT LEVEL 3 [facility] 2021-05-14 2021-05-14 Outpatient EUNICE Sam [id number] [facility] 12:00:00 12:00:00 Aleta 69 [facility] 2020-10-10 2020-10-12 Outside nullFlavo MNA [id number] Memoria 22:58:43 04:59:59 Medical r Neurology 00 l Records Morris Hernández 2020-10-10 2020-10-12 Outside nullFlavo MNA [id number] Memoria 22:58:43 04:59:59 Medical r Neurology 00 l Records Morris Hernández 2020-10-10 2020-10-11 Outpatient MHMISCHER MHMISCHER [id number] 17:58:43 23:59:59 00 2020-10-10 2020-10-11 Outpatient MHMISCHER MHMISCHER [id number] 17:58:43 23:59:59 00 2020-06-17 2020-06-17 Outpatient [facility] [id number] Univers 13:00:00 13:00:00 [facility] 2020-05-27 2020-05-27 Outpatient [facility] [id number] Univers 13:10:00 13:10:00 [facility] 2020-04-26 2020-04-26 Outpatient SHO Sam VALENCIA [id number] [facility] 12:00:00 12:00:00 [facility] 2019-12-03 2019-12-03 Ambulatory nullFlavo MNA [id number] Memoria 14:45:00 14:45:00 Pre-Reg r Neurology 04 l Morris Hernández 2019-12-03 2019-12-03 Ambulatory nullFlavo MNA [id number] Memoria 14:45:00 14:45:00 Pre-Reg r Neurology 05 l Morris Edgar 2019-12-03 2019-12-03 Ambulatory nullFlavo MNA [id number] Memoria 14:45:00 14:45:00 Pre-Reg r Neurology 04 l Morris Hernández 2019-12-03 2019-12-03 Ambulatory nullFlavo MNA [id number] Memoria 14:45:00 14:45:00 Pre-Reg r Neurology 05 l Morris Warren 2019-12-03 2019-12-03 Outpatient MHIE MHIE [id number] Memoria 09:45:00 09:45:00 04 violette Warren 2019-12-03 2019-12-03 Outpatient MHIE MHIE [id number] Memoria 09:45:00 09:45:00 05 violette Warren 2019-12-03 2019-12-03 Outpatient MHIE MHIE [id number] Memoria 09:45:00 09:45:00 04 violette Warren 2019-12-03 2019-12-03 Outpatient MHIE MHIE [id number] Memoria 09:45:00 09:45:00 05 violette Warren 2019-12-03 2019-12-03 Outpatient Reynaldo MHMISCHER MHMISCHER [id number] 09:45:00 09:45:00 Jorge Hans 2019-12-03 2019-12-03 Outpatient Reynaldo MHMISCHER MHMISCHER [id number] 09:45:00 09:45:00 Jorge Hans 2019-12-03 2019-12-03 Outpatient SUSAN JacobsMISCHER MHMISCHER [id number] 09:45:00 09:45:00 Jorge Hans 2019-12-03 2019-12-03 Outpatient Reynaldo MHMISCHER MHMISCHER [id number] 09:45:00 09:45:00 Jorge 05 Hans 2019-10-25 2019-10-25 Transition Xander Retana 1.2.840.114 [id number] Univers 00:00:00 00:00:00 of Care Deloris Zarate [id number] it [place] [phone] [facility] [address] 2019-10-25 2019-10-25 Transition Xander Retana 1.2.840.114 [id number] 00:00:00 00:00:00 of Care Deloris Zarate 350.1.13.10 [place] 4.2.7.2.686 [id number] [facility] 2019-10-22 2019-10-23 Emergency Nela Wu [facility] 1.2.840 .114 [id number] [facility] 10:15:56 15:35:00 Gab Gill 350.1.13.10 [place] [id number] [facility] [address] 2019-10-22 2019-10-23 Emergency Nela Wu [facility] 1.2.840 .114 [id number] 10:15:56 15:35:00 Gab Gill 350.1.13.10 [place] 4.2.7.2.686 [place] [id number] [facility] 2019-10-22 2019-10-22 Urgent Pob1, Acute Care Clinic [facility] 1. 2.840.114 [id number] [facility] 09:06:24 10:19:37 Care Leticia [facility] 350.1.13.10 ity of [place] 4.2.7.2.686 Rob as Professio [phone] Ca dical [facility] [address] 2019-10-22 2019-10-22 Urgent Pob1, Acute [facility] 1.2.840.114 [id number] 09:06:24 10:19:37 Care Care Clinic Health 350.1.13.10 [place] 4.2.7.2.686 Professio [phone] nal [facility] [address] 2019-10-22 2019-10-22 Outpatient R [facility] [id number] [facility] 09:20:00 09:20:00 ity of [facility] 2019-10-22 2019-10-22 Orders Doctor JASON 1.2.840.114 [id number] Univers 00:00:00 00:00:00 Only Unassigned, JAMI 350.1.13.10 ity of [facility] 4.2.7.2.686 Rob as [phone] [address] 2019-09-02 2019-09-03 Outpatient nullFlavo MNA [id number] Memoria 14:00:00 04:59:59 r Neurology 03 l Morris Alanisann 2019-09-02 2019-09-03 Outpatient nullFlavo MNA [id number] Memoria 14:00:00 04:59:59 r Neurology 03 l Castrochris Alanisann 2019-09-02 2019-09-02 Outpatient SUSAN JacobsMISCHER MHMISCHER [id number] 09:00:00 23:59:59 Jorge 03 Hans 2019-09-02 2019-09-02 Outpatient MIGUEL JacobsSCHER MHMISCHER [id number] 09:00:00 23:59:59 Jorge 03 [facility] 2019-09-02 2019-09-02 Outpatient MHIE MHIE [id number] Memoria 09:00:00 09:00:00 03 l [place] 2019-09-02 2019-09-02 Outpatient MHIE MHIE [id number] Memoria 09:00:00 09:00:00 03 violette Warren 2019-07-22 2019-07-23 Outpatient nullFlavo MNA [id number] Memoria 13:15:00 04:59:59 r Neurology 02 l Castro [facility] 2019-07-22 2019-07-23 Outpatient nullFlavo MNA [id number] Memoria 13:15:00 04:59:59 r Neurology 02 l Morris Hernández 2019-07-22 2019-07-22 Outpatient MIGUEL JacobsSCHER MHMISCHER [id number] 08:15:00 23:59:59 Jorge 02 [facility] 2019-07-22 2019-07-22 Outpatient SUSAN JacobsMISCHER MHMISCHER [id number] 08:15:00 23:59:59 Jorge 02 [facility] 2019-07-22 2019-07-22 Outpatient MHIE MHIE [id number] Memoria 08:15:00 08:15:00 02 l [facility] 2019-07-22 2019-07-22 Outpatient MHIE MHIE [id number] Memoria 08:15:00 08:15:00 02 l Warren 2019-06-18 2019-06-19 Outpatient nullFlavo MNA [id number] Memoria 19:15:00 04:59:59 r Neurology 01 l Morris Hernández 2019-06-18 2019-06-19 Outpatient nullFlavo MNA [id number] Memoria 19:15:00 04:59:59 r Neurology 01 l Castrochris Alanisann 2019-06-18 2019-06-18 Outpatient Reynaldo, MHMISCHER MHMISCHER [id number] 14:15:00 23:59:59 Jorge Hans 2019-06-18 2019-06-18 Outpatient Reynaldo, MHMISCHER MHMISCHER [id number] 14:15:00 23:59:59 Jorge Hans 2019-06-18 2019-06-18 Outpatient MHIE SUSANIE [id number] Memoria 14:15:00 14:15:00 01 violette Warren 2019-06-18 2019-06-18 Outpatient MHIE MHIE [id number] Memoria 14:15:00 14:15:00 01 violette Hernández 2011-04-16 2011-04-16 Outpatient nullFlavo [id number] Memoria 14:17:00 14:17:00 r [place] 17 violette Hernández 2011-04-16 2011-04-16 Outpatient nullFlavo [id number] Memoria 14:17:00 14:17:00 r [place] 17 violette Hernández Results Test Description Test Time Test Comments Results Result Comments Source POCT GLUCOSE (AUTOMATED) 2019-10-23 16:23:00 Test Item Value Reference Range Interpretation Comme nts POCT GLU (test code = 4836451138) 132 mg/dL 70-110 H Lab Interpretation (test code = 26762-5) [facility]normal [facility] [id number] 15:44:00 Test Item Value Reference Range Interpretation Comments NT-proBNP (test code 2190 pg/mL See_Comment H [Autom ated = 0289069101) message] The system which generated this result transmitted reference range : <=125. The reference range was not used to interpret this result as normal/abnormal . SHIRAZ (test code = SHIRAZ) Biotin has been reported to cause a negative bias, interpret results relative to patient's use of biotin. Lab Interpretation Abnormal (test code = 73252-0) [facility] [id number] 15:04:00 Test Item Value Reference Range Interpretation Comments FREE T4 (test code = See_Comment [Autom ated message] 3140329435) The system Wisr generated this result transmitted ref erence range: 0.78 - 2 .20 ng/dL:. The ref erence range was not u sed to interpret this result as normal/abnor mal. Lab Interpretation (test Normal code = 81338-3) [facility] [id number] 13:48:00 Test Item Value Reference Range Interpretation Comments FREE T3 (test code = 3093465217) 1.84 pg/mL 2.77-5.27 L Lab Interpretation (test code = Abnormal 92308-7) [facility] GLUCOSE (AUTOMATED)2019-10-23 13:20:00 Test Item Value Reference Range Interpretation Comments POCT GLU (test code = 4711351681) 124 mg/dL 70-110 H Lab Interpretation (test code = Abnormal 31134-4) [facility] [id number] 10:06:00 Test Item Value Reference Range Interpretation Comments TROPONIN I (test 0.123 ng/mL See_Comment H [Automated code = 4871769931) message] The system which generated this result transmitted reference range : <=0.034. The reference range was not used to interpret this result as normal/abnormal . SHIRAZ (test code = Equal or Less than SHIRAZ) 0.034 ng/ml---Normal ?Note: Cardiac troponin begins to rise 3-4 hours after the onset of ischemia. Repeat in 4-6 hours if the sample was drawn within 3-4 hours of the onset of the symptom and found normal. Between 0.035 and 0.120 ng/mL--- Borderline. Questionable myocardial injury or necrosis ? ?Note: Serial measurement may be necessary to confirm or exclude the diagnosis of myocardial injury or necrosis; Clinical correlation (symptoms, EKGs, imaging studies, and others) required; Repeat in 4-6 hours if clinically indicated. ? Equal or Higher than 0.121 ng/mL---Abnormal. Myocardial Injury or Necrosis Likely ? Biotin has been reported to cause a negative bias, interpret results relative to patient's use of biotin. ? Lab Interpretation Abnormal (test code = 63348-7) [facility] (NA, K, CL, CO2, GLUCOSE, BUN, CREATININE, CA)2019-10-23 09:58:00 Test Item Value Reference Range Interpretation Comments NA (test code = 135 mmol/L 135-145 3584225769) K (test code = 3.7 mmol/L 3.5-5 7454067367) CL (test code = 100 mmol/L 98-108 4168677678) CO2 TOTAL (test code = 27 mmol/L 23-31 8407941521) AGAP (test code = 2-16 4707744240) BUN (test code = 16 mg/dL 7-23 8890934538) GLUCOSE (test code = 141 mg/dL 70-110 H 6442434804) CREATININE (test code = 0.70 mg/dL 0.5-1.04 6166130328) CALCIUM (test code = 9.2 mg/dL 8.6-10.6 9970759417) eGFR Calculation mL/min/1.73m2 (Non-) (test code = 6059168448) eGFR Calculation mL/min/1.73m2 () (test code = 0417766543) SHIRAZ (test code = SHIRAZ) Association of Glomerular Filtration Rate (GFR) and Staging of Kidney Disease* + --+ --+ ------+| GFR (mL/min/1.73 m2) ?| With Kidney Damage ?| ?Without Kidney Damage+ --------+ --------+ +| ?>90 ?| ?Stage one ?| ? Normal ?+ ---+ ---+ -------+| ?60-89 ?| ?Stage two ?| ? Decreased GFR ? + --+ --+ ------+| ?30-59 ?| ?Stage three ?| ? Stage three ? + --+ --+ ------+| ?15-29 ?| ?Stage four ? | ? Stage four ?+ ---+ ---+ -------+| ?<15 (or dialysis) ? ?| ?Stage five ? | ? Stage five ?+ ---+ ---+ -------+ *Each stage assumes the associated GFR level has been in effect for at least three months. ?Stages 1 to 5, with or without kidney disease, indicate chronic kidney disease. Notes: Determination of stages one and two (with eGFR >59mL/min/1.73 m2) requires estimation of kidney damage for at least three months as defined by structural or functional abnormalities of the kidney, manifested by either:Pathological abnormalities or Markers of kidney damage (including abnormalities in the composition of the blood or urine or abnormalities in imaging tests). Lab Interpretation Abnormal (test code = 57856-8) [facility] with [id number] 09:41:00 Test Item Value Reference Range Interpretation Comments WBC (test code = See_Comment [Automated 6360-2) message] The sy stem which generated this result transmitted reference range : 4.30 - 11.10 10*3/?L. The reference range was not used to interpret this result as normal/abnormal . RBC (test code = See_Comment [Automated 687-8) message] The sy stem which generated this result transmitted reference range : 3.93 - 5.25 10*6/?L. The reference range was not used to interpret this result as normal/abnormal . HGB (test code = 11.7 g/dL 11.6-15 718-7) HCT (test code = 34.7 % 35.7-45.2 L 4544-3) MCV (test code = 85.5 fL 80.6-95.5 787-2) MCH (test code = 28.8 pg 25.9-32.8 785-6) MCHC (test code = 33.7 g/dL 31.6-35.1 786-4) RDW-SD (test code = 41.1 fL 39-49.9 26000-3) RDW-CV (test code = 13.2 % 12-15.5 788-0) PLT (test code = See_Comment [Automated 597-3) message] The sy stem which generated this result transmitted reference range : 166 - 358 10*3/ ?L. The reference r alonso was not used to interpret this result as normal/abnormal . MPV (test code = 12.4 fL 9.5-12.9 78211-7) NRBC/100 WBC (test See_Comment [Automat ed code = 8926809977) message] The system which generated this result transmitted reference range : 0.0 - 10.0 /100 WBCs. The refer ence range was not u sed to interpret th is result as normal/abnormal . NRBC x10^3 (test code <0.01 See_Comment [Auto mated = 3845384715) message] The s ystem which generated this result transmitted reference range : 10*3/?L. The reference range was not used to interpret this result as normal/abnormal . GRAN MAT (NEUT) % 86.0 % (test code = 770-8) IMM GRAN % (test code 0.30 % = 6329988600) LYMPH % (test code = 11.4 % 736-9) MONO % (test code = 2.3 % 5905-5) EOS % (test code = 0.0 % 713-8) BASO % (test code = 0.0 % 706-2) GRAN MAT x10^3(ANC) 6.88 10*3/uL 1.88-7.09 (test code = 3820607853) IMM GRAN x10^3 (test <0.03 0-0.06 code = 3712928551) LYMPH x10^3 (test code 0.91 10*3/uL 1.32-3.29 L = 731-0) MONO x10^3 (test code 0.18 10*3/uL 0.33-0.92 L = 742-7) EOS x10^3 (test code = <0.03 0.03-0.39 L 711-2) BASO x10^3 (test code <0.03 0.01-0.07 = 704-7) Lab Interpretation Abnormal (test code = 51017-9) [facility] [id number] 04:22:00 Test Item Value Reference Range Interpretation Comments TROPONIN I (test 0.135 ng/mL See_Comment H [Automated code = 7914814493) message] The system which generated this result transmitted reference range : <=0.034. The reference range was not used to interpret this result as normal/abnormal . SHIRAZ (test code = Equal or Less than SHIRAZ) 0.034 ng/ml---Normal ?Note: Cardiac troponin begins to rise 3-4 hours after the onset of ischemia. Repeat in 4-6 hours if the sample was drawn within 3-4 hours of the onset of the symptom and found normal. Between 0.035 and 0.120 ng/mL--- Borderline. Questionable myocardial injury or necrosis ? ?Note: Serial measurement may be necessary to confirm or exclude the diagnosis of myocardial injury or necrosis; Clinical correlation (symptoms, EKGs, imaging studies, and others) required; Repeat in 4-6 hours if clinically indicated. ? Equal or Higher than 0.121 ng/mL---Abnormal. Myocardial Injury or Necrosis Likely ? Biotin has been reported to cause a negative bias, interpret results relative to patient's use of biotin. ? Lab Interpretation Abnormal (test code = 49073-9) [facility] [id number] 00:43:38 1. ?No acute pulmonary embolism are seen. 2. ?Bilateral groundglass opacities noted in the bilateral upper lobes aswell as posterior and superior segments of bilateral lower lung lobes,likely due to pulmonary edema associated with compressive atelectasis.3. ?Cardiomegaly with moderate bilateral pleural effusion is noted, left isgreater than right . Preliminary Report Dictated by Resident: Easton Esqueda MD., have reviewed this study and agree with theabove report.PROCEDURE: CT ANGIO CHEST WITH CONTRAST - PE PROTOCOL CLINICAL INDICATION: PE suspected, intermediate prob, positive D-dimer ? COMPARISON: ?None. TECHNIQUE: ?Helical CT was performed and reconstructed at 1 mm slicethickness from lung bases to apices using 100 mL of Omnipaque intra venouscontrast, without complication. ? 3D axial MIPS and coronal MPRS weregenerated under radiologist supervision, and reviewed to further defineanatomy and possible pathology. ? (DFOV = 36.8 cm) FINDINGS: PULMONARY ARTERIES: Enhancement is adequate and there is no acute or chronic pulmonaryembolism.CHEST: Lower neck/thyroid: Unremarkable. Lungs: Bilateral groundglass opacities noted in the bilateral upper lobesas well as posterior and superior segments of bilateral lower lung lobesassociated withcompressive atelectasis. Prominent interstitial septalthickening is noted. Central airway: Unremarkable. Pleura: Moderate bilateral pleural effusion is noted, left is greater thanright with internal density of simple fluid. No pleural thickeningthickening or pneumothorax. Thoracic aorta and great vessels: ?Enlarged ascending aorta measuring 4.4cm Heart and pericardium: No detectablecoronary arterial calcification.Dilated left atrium measuring 5 cm in AP diameter Unremarkable cardiacmorphology and pericardium. Lymph nodes: Multiple subcentimeter AP window lymph nodes are noted Mediastinum: Unremarkab le. Thoracic spine and chest wall: Mild degenerative changes seen in thethoracic spine, with normal thoracic vertebral body heights. Other Lines/Tubes/Devices/Hardware: None Visualized upper abdomen: Unremarkable. [facility], Radiant Results Inft User - 10/22/2019 7:44 PM CDTPROCEDURE: CT ANGIO CHEST WITH CONTRAST - PE PROTOCOLCLINICAL INDICATION: PE suspected, intermediate prob, positive D-dimer COMPARISON: None.TECHNIQUE: Helical CT was performed and reconstructed at 1 mmslicethickness from lung bases to apices using 100 mL of Omnipaque intravenouscontrast, without complication. 3D axial MIPS and coronal MPRS weregenerated under radiologist supervision, and reviewed tofurther defineanatomy and possible pathology. (DFOV = 36.8 cm)FINDINGS:PULMONARY ARTERIES: Enhancement is adequate and there is no acute or chronic pulmonaryembolism.CHEST:Lower neck/thyroid: Unremarkable.Lungs: Bilateral groundglass opacities noted in the bilateral upper lobesas well as posterior andsuperior segments of bilateral lower lung lobesassociated with compressive atelectasis. Prominent interstitial septalthickening is noted. Central airway: Unremarkable.Pleura: Moderate bilateral pleuraleffusion is noted, left is greater thanright with internal density of simple fluid. No pleural thickeningthickening or pneumothorax.Thoracic aorta and great vessels: Enlarged ascending aorta measuring 4.4cmHeart and pericardium: No detectablecoronary arterial calcification.Dilated left atrium measuring 5 cm in AP diameter Unremarkable cardiacmorphology and pericardium.Lymph nodes: Multiple subcentimeter AP window lymph nodes are notedMediastinum: Unremarkable.Thoracic spine and chest wall: Mild degenerative changes seen in thethoracic spine, with normal thoracic vertebral body heights.Other Lines/Tubes/Devices/Hardware: NoneVisualized upper abdomen: Unremarkable. IMPRE SSION1. No acute pulmonary embolism are seen. 2. Bilateral groundglass opacities noted in the bilateral upper lobes aswell as posterior and superior segments of bilateral lower lung lobes,likely due topulmonary edema associated with compressive atelectasis.3. Cardiomegaly with moderate bilateral pleural effusion is noted, left isgreater than right . Preliminary Report Dictated by Resident: Easton Medel MD., have reviewed this study and agreewith theabove report.[facility] Center[facility]yroid Stimulating Hormone (TSH)2019-10-22 23:25:00 Test Item Value Reference Range Interpretation Comments TSH (test code = <0.02 See_Comment L [Automated message] [id number]) The system Wisr generated this result transmitted ref erence range: 0.45 - 4 .70 mIU/L. The refe rence range was not u sed to interpret this result as normal/abnor mal. Lab Interpretation (test Abnormal code = 63327-6) [facility] (Total Cholesterol, Triglycerides, HDL)2019-10-22 22:53:00 Test Item Value Reference Range Interpretation Comments CHOL (test code = 145 mg/dL 120-200 5157182669) HDL (test code = 47 mg/dL >50 L 8651786063) HDLC RATIO (test code = See_Comment [Au tomated message] 3510308317) The system Wisr generated this result transmit faizan reference range : <=4.5. The refe rence range was not u sed to interpret th is result as normal/abnormal . TRIG (test code = 68 mg/dL 30-170 0997909564) LDL CHOL (test code = 84 mg/dL See_Comment [Auto mated message] 23232-6) The system Wisr generated this result transmit faizan reference range : <=160. The refe rence range was not u sed to interpret th is result as normal/abnormal . VLDL (test code = 14 mg/dL 5-60 9629310216) Lab Interpretation (test Abnormal code = 40750-7) [id number] Test Item Value Reference Range Interpretation Comments TROPONIN I (test 0.059 ng/mL See_Comment H [Automated code = 4239080487) message] The system which generated this result transmitted reference range : <=0.034. The reference range was not used to interpret this result as normal/abnormal . SHIRAZ (test code = Equal or Less than SHIRAZ) 0.034 ng/ml---Normal ?Note: Cardiac troponin begins to rise 3-4 hours after the onset of ischemia. Repeat in 4-6 hours if the sample was drawn within 3-4 hours of the onset of the symptom and found normal. Between 0.035 and 0.120 ng/mL--- Borderline. Questionable myocardial injury or necrosis ? ?Note: Serial measurement may be necessary to confirm or exclude the diagnosis of myocardial injury or necrosis; Clinical correlation (symptoms, EKGs, imaging studies, and others) required; Repeat in 4-6 hours if clinically indicated. ? Equal or Higher than 0.121 ng/mL---Abnormal. Myocardial Injury or Necrosis Likely ? Biotin has been reported to cause a negative bias, interpret results relative to patient's use of biotin. ? Lab Interpretation Abnormal (test code = 28773-8) [facility] CenterGlycosylated Hemoglobin (A1C)2019-10-22 22:17:00 Test Item Value Reference Range Interpretation Comments HGB A1C (test code = 5.4 % 4-6 4548-4) SHIRAZ (test code = SHIRAZ) %A1C (NGSP) Interpretation (ADA)4.8-5.6 ? ? Normal or (Non-Diabetic Range)5.7-6.4 ? ? Increased Risk (Pre-Diabetic)>6.5 ?Diabetes Indicated Lab Interpretation Normal (test code = 38272-4) [facility]FIB[facility]INOGEN2020-07-24 17:54:00 Test Item Value Reference Range Interpretation Comments Fibrinogen (test code = 5475082965) 436 mg/dL 214-470 Lab Interpretation (test code = Normal 61989-2) [facility]URIN[facility]IS2020-[facility]-24 17:52:00 Test Item Value Reference Range Interpretation Comments APPEARANCE (test code = Clear Clear 9738211486) COLOR (test code = Yellow Yellow 3175489329) PH (test code = 4.8-8.0 6269133988) SP GRAVITY (test code = 1.003-1.030 6399453561) GLU U QUAL (test code = Negative Negative 7079330501) BLOOD (test code = Trace Negative A 6620277525) KETONES (test code = Negative Negative 2203426924) PROTEIN (test code = Negative Negative 2887-8) UROBILIN (test code = 0.2 mg/dL See_Comment [Auto mated message] 9233223957) The system Wisr generated this result transmit faizan reference range : 0-1.0 mg/dL. Th e reference range was not used to interpret this result as normal/abnormal . BILIRUBIN (test code = Negative Negative 6237187990) NITRITE (test code = Negative Negative 1443014386) LEUK MARIA A (test code = Negative Negative 0999938700) RBC/HPF (test code = <1 See_Comment [Autom ated message] 3966645639) The system Wisr generated this result transmit faizan reference range : 0 - 3 HPF. The refe rence range was not u sed to interpret th is result as normal/abnormal . WBC/HPF (test code = <1 See_Comment [Autom ated message] 9471923251) The system Wisr generated this result transmit faizan reference range : 0 - 5 HPF. The refe rence range was not u sed to interpret th is result as normal/abnormal . BACTERIA (test code = Few Negative A 5523150383) SQ EPITH (test code = See_Comment [Auto mated message] 7956724651) The system Wisr generated this result transmit faizan reference range : <=1 HPF. The refere nce range was not u sed to interpret th is result as normal/abnormal . Lab Interpretation (test Abnormal code = 85708-8) [facility] CenterD-[id number] 17:37:00 Test Item Value Reference Interpretation Comments Range D-DIMER (test code = See_Comment H [Autom ated 6967187931) message] The system which generated this result transmitted reference range : <0.41 ?g/mL (FEU). The reference range was not used to interpret this result as normal/abnormal . SHIRAZ (test code = This test may be SHIRAZ) used in conjunction with a clinical pretest probability (PTP) assessment model to exclude venous thromboembolism (VTE) in patients suspected of deep venous thrombosis (DVT) and pulmonary embolism (PE) A D-Dimer value less than 0.50 ?g/ml (FEU) has a negative predicative value of 96 to 100% (95% CI)and 97 to 100% (95% CI) as an aid in the diagnosis of deep vein thrombosis (DVT) and pulmonary embolism when there is low or moderate pretest probability of PE or DVT. D-Dimer values are expressed in initial fibrinogen equivalent units (FEU)" The assay results should be used with other information, including the clinical context, in forming a diagnosis. Lab Interpretation Abnormal (test code = 96905-4) [facility] CenteraPTT2020-07-[facility] 17:29:00 Test Item Value Reference Range Interpretation Comments APTT Patient (test See_Comment [Automat ed code = 3173-2) message] The system which generated this result transmitted reference range : 23 - 38 Seconds . The reference range was not used to interpr et this result as normal/abnormal . SHIRAZ (test code = SHIRAZ) The [facility] patient population mean normal value for aPTT is 30 seconds. Lab Interpretation Normal (test code = 96166-0) [facility] CenterPROTHROMBIN TIME / [id number] 17:27:00 Test Item Value Reference Range Interpretation Comments PROTIME PATIENT (test See_Comment [Auto mated message] code = 5964-2) The system wh ich generated this result transmitted ref erence range: 12.0 - 1 4.7 Seconds. The re ference range was not u sed to interpret this result as normal/abnor mal. INR (test code = 6301-6) Nor mal INR <1.1; Warfarin Therap eutic range 2.0 to 3. 0 or 2.5 to 3.5, dep ending upon the indica tions. Lab Interpretation (test Normal code = 77188-9) [facility] CenterLACTATE [id number] 17:15:00 Test Item Value Reference Range Interpretation Comments LDH (test code = 0529378840) 464 U/L 300-600 Lab Interpretation (test code = Normal 94394-3) [facility] CenterLactic Acid Whole [id number] 16:47:00 Test Item Value Reference Range Interpretation Comments LACTIC ACID (test code = 1.82 mmol/L 9008303197) [facility] CenterTROPONIN [id number] 16:46:00 Test Item Value Reference Range Interpretation Comments TROPONIN I (test 0.042 ng/mL See_Comment H [Automated code = 5380020681) message] The system which generated this result transmitted reference range : <=0.034. The reference range was not used to interpret this result as normal/abnormal . SHIRAZ (test code = Equal or Less than SHIRAZ) 0.034 ng/ml---Normal ?Note: Cardiac troponin begins to rise 3-4 hours after the onset of ischemia. Repeat in 4-6 hours if the sample was drawn within 3-4 hours of the onset of the symptom and found normal. Between 0.035 and 0.120 ng/mL--- Borderline. Questionable myocardial injury or necrosis ? ?Note: Serial measurement may be necessary to confirm or exclude the diagnosis of myocardial injury or necrosis; Clinical correlation (symptoms, EKGs, imaging studies, and others) required; Repeat in 4-6 hours if clinically indicated. ? Equal or Higher than 0.121 ng/mL---Abnormal. Myocardial Injury or Necrosis Likely ? Biotin has been reported to cause a negative bias, interpret results relative to patient's use of biotin. ? Lab Interpretation Abnormal (test code = 96607-1) [facility] CenterN-TERMINAL [id number] 16:43:00 Test Item Value Reference Range Interpretation Comments NT-proBNP (test code 1180 pg/mL See_Comment H [Autom ated = 0799018490) message] The system which generated this result transmitted reference range : <=125. The reference range was not used to interpret this result as normal/abnormal . SHIRAZ (test code = SHIRAZ) Biotin has been reported to cause a negative bias, interpret results relative to patient's use of biotin. Lab Interpretation Abnormal (test code = 53951-6) [facility] CenterCOVID-19 (ID NOW RAPID TESTING)2019-10-22 16:41:00 Test Item Value Reference Range Interpretation Comments SARS-CoV-2 Rapid ID NOW Not Detected Not Detected (test code = 27079-0) SHIRAZ (test code = SHIRAZ) ID NOW COVID-19 Assay is an isothermal nucleic acid amplification test intended for the qualitative detection of nucleic acid from SARS-CoV-2 viral RNA in nasopharyngeal (NUT FEEDER) specimens. It is used under Emergency Use Authorization (EUA) by FDA. The limit of detection (LOD) of the assay is 125 Genome Equivalents/mL. A positive result is indicative of the presence of SARS-CoV-2 RNA. ?Clinical correlation with patient history and other diagnostic information is necessary to determine patient infection status. A negative (Not Detected) result does not preclude SARS-CoV-2 infection. In patients with clinical symptoms and other tests that are consistent with SARS-CoV-2 infection, negative results should be treated as presumptive negative and a new specimen should be tested with alternative PCR molecular test. Invalid: Please collect a new specimen for repeat patient testing if clinically indicated. Lab Interpretation Normal (test code = 64986-8) [facility] CenterXR CHEST 1 VW [id number] 16:40:26 Bilateral hazy and interstitial opacities are nonspecific, cannot excludeatypical infection including but not limited to COVID 19 pneumonia. Mild central pulmonary vascular congestion with trace bilateral pleuraleffusions. Disclaimer: Generally, the findings on chest imaging in COVID-19 are notspecifi c, and overlap with other infections, including influenza, H1N1,SARS and MERS.According to the Centers for Disease Control (CDC) and recent statement ofthe [place] [employer], viral testing remains the only specificmethod of diagnosis. Confirmation with the viral test is required, even ifradiologic findings are suggestive of COVID-[address]. Preliminary Report Dictated by Resident: Jacek Talavera I, Lan Ames MD., have reviewed this study and agree with the abovereport.PROCEDURE: XR CHEST 1 VW COVID CLINICAL INDICATION: 69-year-old female, with shortness of breath COMPARISON: NoneFINDINGS: Lungs are well-expanded, without definite pneumothoraces. Interstitial andhazy opacities noted in bilateral middle and lower lobes. Bilateralcostophrenic angles are slightly blunted, scarringversus pleural effusion.There may be some mild central pulmonary vascular congestion. The cardiomediastinal silhouette is normal in size for technique. No acute bony abnormality. [facility], Radiant Results Inft User - 10/22/2019 11:41 AM CDTPROCEDURE: XR CHEST 1 VW COVIDCLINICAL INDICATION: 69-year-old female, with shortness of breathCOMPARISON: NoneFINDINGS:Lungs are well-expanded, without definite pneumo thoraces. Interstitial andhazy opacities noted in bilateral middle and lower lobes. Bilateralcostophrenic angles are slightly blunted, scarring versus pleural effusion.There may be some mild central pulmonary vascular congestion.The cardiomediastinal silhouette is normal in size for technique.No acutebony abnormality.IMPRESSIONBilateral hazy and interstitial opacities are nonspecific, cannot excludeatypical infection including but not limited to COVID 19 pneumonia.Mild central pulmonary vascular congestion with trace bilateral pleuraleffusions.Disclaimer: Generally, the findings on chest imaging in COVID- 19 are notspecific, and overlap with other infections, including influenza, H1N1,SARS and MERS.According to the Centers for Disease Control (CDC) and recent statement ofthe [place] [employer], viral testing remains the only specificmethod of diagnosis. Confirmation with the viral test is required, even ifradiologic findings are suggestive of COVID-[address]. Preliminary ReportDictated by Resident: Lan Galan MD., have reviewed this study and agree with the abovereport.[facility] CenterCOM. METABOLIC PANEL (12967)2019-10-22 16:34:00 Test Item Value Reference Range Interpretation Comments NA (test code = 140 mmol/L 135-145 5393744714) K (test code = 4.0 mmol/L 3.5-5 0290219324) CL (test code = 105 mmol/L 98-108 5921956301) CO2 TOTAL (test code = 26 mmol/L 23-31 6284548660) AGAP (test code = 2-16 7716950962) BUN (test code = 17 mg/dL 7-23 5793998082) GLUCOSE (test code = 102 mg/dL 70-110 9127095214) CREATININE (test code = 0.75 mg/dL 0.5-1.04 6614521977) TOTAL BILI (test code = 1.2 mg/dL 0.1-1.1 H 9572938757) CALCIUM (test code = 9.2 mg/dL 8.6-10.6 1695743143) T PROTEIN (test code = 7.7 g/dL 6.3-8.2 5471311207) ALBUMIN (test code = 4.2 g/dL 3.5-5 4293573069) ALK PHOS (test code = 103 U/L 34-122 3499148674) ALTv (test code = 16 U/L 5-35 1742-6) AST(SGOT) (test code = 21 U/L 13-40 4361463475) eGFR Calculation mL/min/1.73m2 (Non-) (test code = 9797026859) eGFR Calculation mL/min/1.73m2 () (test code = 2740429064) SHIRAZ (test code = SHIRAZ) Association of Glomerular Filtration Rate (GFR) and Staging of Kidney Disease* + --+ --+ ------+| GFR (mL/min/1.73 m2) ?| With Kidney Damage ?| ?Without Kidney Damage+ --------+ --------+ +| ?>90 ?| ?Stage one ?| ? Normal ?+ ---+ ---+ -------+| ?60-89 ?| ?Stage two ?| ? Decreased GFR ? + --+ --+ ------+| ?30-59 ?| ?Stage three ?| ? Stage three ? + --+ --+ ------+| ?15-29 ?| ?Stage four ? | ? Stage four ?+ ---+ ---+ -------+| ?<15 (or dialysis) ? ?| ?Stage five ? | ? Stage five ?+ ---+ ---+ -------+ *Each stage assumes the associated GFR level has been in effect for at least three months. ?Stages 1 to 5, with or without kidney disease, indicate chronic kidney disease. Notes: Determination of stages one and two (with eGFR >59mL/min/1.73 m2) requires estimation of kidney damage for at least three months as defined by structural or functional abnormalities of the kidney, manifested by either:Pathological abnormalities or Markers of kidney damage (including abnormalities in the composition of the blood or urine or abnormalities in imaging tests). Lab Interpretation Abnormal (test code = 13199-5) [facility] CenterLIPASE2020-07-24 16:34:00 Test Item Value Reference Range Interpretation Comments LIPASE (test code = 6770087245) 35 U/L 0-220 Lab Interpretation (test code = Normal 69214-7) [facility] WITH [id number] 16:18:00 Test Item Value Reference Range Interpretation Comments WBC (test code = See_Comment [Automated message] 6690-2) The system Wisr generated this result transmitted ref erence range: 4.30 - 1 1.10 10*3/?L. The re ference range was not u sed to interpret this result as normal/abnor mal. RBC (test code = See_Comment [Automated message] 409-8) The system Wisr generated this result transmitted ref erence range: 3.93 - 5 .25 10*6/?L. The re ference range was not u sed to interpret this result as normal/abnor mal. HGB (test code = 12.4 g/dL 11.6-15 718-7) HCT (test code = 36.8 % 35.7-45.2 4544-3) MCV (test code = 88.2 fL 80.6-95.5 787-2) MCH (test code = 29.7 pg 25.9-32.8 785-6) MCHC (test code = 33.7 g/dL 31.6-35.1 786-4) RDW-SD (test code 42.5 fL 39-49.9 = 18089-7) RDW-CV (test code 13.1 % 12-15.5 = 788-0) PLT (test code = See_Comment [Automated message] 777-3) The system whic h generated this result transmitted ref erence range: 166 - 35 8 10*3/?L. The re ference range was not u sed to interpret this result as normal/abnor mal. MPV (test code = 12.3 fL 9.5-12.9 89789-4) NRBC/100 WBC (test See_Comment [Automat ed message] code = 0239396227) The syste m which generated this result transmitted ref erence range: 0.0 - 10 .0 /100 WBCs. The refer ence range was not u sed to interpret this result as normal/abnor mal. NRBC x10^3 (test <0.01 See_Comment [Automated message] code = 6829724945) The syste m which generated this result transmitted ref erence range: 10*3/?L. The reference range was not used to interpr et this result as normal/abnormal . GRAN MAT (NEUT) % 66.4 % (test code = 770-8) IMM GRAN % (test 0.50 % code = 1022873584) LYMPH % (test code 23.1 % = 736-9) MONO % (test code 6.9 % = 5905-5) EOS % (test code = 2.5 % 713-8) BASO % (test code 0.6 % = 706-2) GRAN MAT 5.84 10*3/uL 1.88-7.09 x10^3(ANC) (test code = 7164136537) IMM GRAN x10^3 0.04 10*3/uL 0-0.06 (test code = 3094725233) LYMPH x10^3 (test 2.03 10*3/uL 1.32-3.29 code = 731-0) MONO x10^3 (test 0.61 10*3/uL 0.33-0.92 code = 742-7) EOS x10^3 (test 0.22 10*3/uL 0.03-0.39 code = 711-2) BASO x10^3 (test 0.05 10*3/uL 0.01-0.07 code = 704-7) [facility]
--- NOTE | 2022-05-21 11:57 | P.CNS ---
Date of Consult: 05/21/22 Reason for Consult: Medical management Requesting Physician: Abhay Bojorquez Chief Complaint: Left knee osteoarthritis\pain History of Present Illness: Patient is a 72-year-old female with past medical history significant for hypothyroidism, HLD, hypertension, peripheral neuropathy who presents for a planned procedure--left knee arthroplasty. Patient reported that she has been having osteoarthritis in bilateral knees for the past couple of years but pain became worse in the last couple of weeks. Patient reported that she attempted conservative management, pain medications and steroid shots but does not experience any improvement in pain Patient rated pain before procedure as 10/10 in severity and described as aching in quality. Patient indicated that pain started affecting her mobility as well as ADLs. Patient denies any other signs and symptoms. Symptoms are aggravated by weight bearing and relieved by nothing. Patient tolerated procedure. Patient currently resting in bed on a CPM machine. Allergies No Known Allergies Allergy (Verified 05/16/22 08:21) Home Medications: Atorvastatin Calcium [Lipitor] 20 mg PO BEDTIME 05/16/22 Furosemide [Lasix] 40 mg PO DAILY 05/16/22 Losartan Potassium 100 mg PO DAILY 05/16/22 Metoprolol Succinate 50 mg PO DAILY 05/16/22 Pregabalin 3 tab PO DAILY 05/16/22 Levothyroxine Sodium [Levothyroxine] 137 mcg PO DAILY 05/21/22 Liothyronine Sodium [Cytomel] 10 mcg PO DAILY 05/21/22 - Past Medical/Surgical History Diabetic: No -: fibromyalgia -: high blood pressure -: cholesterol -: thyroid -: radiation thyroid -: hysterectomy -: tumor removed appendix and ovaries - Family History Mother Medical History: Heart disease - Social History Smoking Status: Never smoker Alcohol use: Yes CD- Drugs: No Caffeine use: Yes Place of Residence: Home Review of Systems General: Unremarkable Eyes: Unremarkable ENT: Unremarkable Respiratory: Unremarkable Cardiovascular: Unremarkable Genitourinary: As per HPI Musculoskeletal: Other (left knee pain ) Integumentary: Unremarkable Neurological: Unremarkable Lymphatics: Unremarkable Physical Examination Temp Pulse Resp BP Pulse Ox 98 F 86 18 117/51 L 05/21/22 10:49 05/21/22 10:49 05/21/22 10:49 05/21/22 10:49 General: Alert, In no apparent distress, Oriented x3, Cooperative HEENT: Atraumatic, Normocephalic, PERRLA, EOMI Neck: Supple, JVD not distended, No Thyromegaly, Without JVD or thyroid abnormality Respiratory: Clear to auscultation bilaterally, Normal air movement Cardiovascular: No edema, Normal pulses, Regular rate/rhythm, No murmurs Gastrointestinal: Normal bowel sounds, Soft and benign, Non-distended Musculoskeletal: Tenderness Integumentary: No rashes, No breakdown Neurological: Normal speech, Sensation intact, Normal affect Lymphatics: No axilla or inguinal lymphadenopathy Conclusions/Impression: --Left knee osteoarthritis. Status post left knee replacement. Continue CPM therapy. PT eval and treat. Surgeon on board. Further management per surgeon. -- Acute pain\fibromyalgia\osteoarthritis. Continue current pain medication regimen. --Hyperlipidemia. Continue statin. --Hypertension. Stable. Continue home medications. --Peripheral neuropathy. Continue gabapentin. --Hypothyroidism. Continue home medications. --CKD 3A. Baseline functions unknown. We will continue to monitor renal functions. --Class I obesity. Likely secondary to excess calories intake. Patient counseled on weight reduction, diet and excise therapy. --DVT prophylaxis with SCDs. Continue chemical prophylaxis in am Physician Review: Patient Assessed, Agree with Above Assessment and Plan Critical Care: No
[2022-05-21 11:58] VITALS: BMI 33.3
[2022-05-21] MEDS: HYDROCODONE/APAP 7.5/325 MG TAB PO PRN ×3 (12:21→20:36)
--- NOTE | 2022-05-21 13:08 | OP ---
Date of Procedure: 05/21/2022 Surgeon: Abhay Bojorquez MD Preoperative Diagnosis: Left knee severe degenerative joint disease. Postoperative Diagnosis: Left knee severe degenerative joint disease. Procedure: Left total knee arthroplasty using the [employer] Vangu[employer] system. Estimated Blood Loss: Less than 100 cc. Complications: There were no complications. Indications For Operation: Ms. Gardiner is a 72-year-old female, who has had a great trouble and diffi culty with her left knee for some time despite conservative care. This interferes with her activitie s of daily living. X-rays demonstrated profound arthritic change and risks, benefits, and alternativ es to total knee arthroplasty have been discussed with her. She states she understands things presen faizan and wished to proceed. Description Of Procedure: The patient was taken to the operating room and placed in the supine posit ion. General anesthesia was easily obtained by the Anesthesia staff. She had previously had a perip heral block. Following this, a well-padded tourniquet was placed on the superior left thigh. Left l ower extremity was then prepped and draped in the usual sterile fashion procedure. After this, the l eg was then elevated, exsanguinated, and the knee was bent. Tourniquet was raised. A standard longi tudinal incision was made in the anterior aspect of the knee and was taken down carefully through ski n and soft tissues. The appropriate layers were encountered and it was then reflected allowing good visualization of the extensor mechanism. The superior medial border of the extensor mechanism was th en identified and marked. This was followed by standard medial parapatellar arthrotomy, which libera faizan approximately 60 cc of rather normal-appearing synovial fluid. This reveals [id number]-[id number] changes throughout the patellofemoral joint as well as medial compartment. The lateral compartment was also involved less extensively. After this, some degree of fat pad was removed as well as the anterior c ruciate ligament and the medial and lateral menisci. The care was taken to protect the patellar tend on while the patella was reflected. After this, a standard intramedullary alignment guide was then p laced. A distal cutting block was then placed in standard fashion. It was then sized appropriately and the remainder of the cuts were then performed along the femur. After this, the tibia was then in spected. There was found to be quite a low lateral tibial plateau, which appears to be more [place] t viveros eroded as most of the sclerosis appears to be on the medial aspect of the knee. The tibia was th en cut in standard fashion, perhaps slightly lower than normal on the medial side and the knee was th en trialed. It does come to full extension and appears to be well balanced both in flexion and exten bhavana, and appears to be aligned well in the sagittal plane. After this, attention was then turned to the patella. It was then calipered and cut. A trial patella was then placed. The knee was brought through range of motion and was found to glide well. The trial components were removed and the box was cut for the femur. This was followed by punching of the tibia as well as placement of bone plug. After this, the knee was copiously irrigated and the surfaces were prepared for placement of the fi nal components. The final components were then placed with removal of any unsupported cement and jose cement of the trial polyethylene. It was then brought into extension as the cement was allowed to encinas rden. After this, the trial polyethylene was removed. Any unsupported cement or aberrant cement is removed. The wound was copiously irrigated with the jet lavage and the final polyethylene was then p laced and locked in place with locking bar. The wound was again irrigated and the fascia was closed in a watertight fashion using heavy Ethibond sutures. It was again irrigated and skin was closed usi ng nylon sutures followed by deirdre. The patient was then placed in a well-padded sterile dressing, awakened, and taken to the recovery room. /BG Voice ID: [id number] Report ID: [id number]
[2022-05-21 13:47] LABS: Magnesium 2.2 mg/dL (1.6-2.4); Phosphorus 4.3 mg/dL (2.5-4.9)
[2022-05-21] MEDS: CEFAZOLIN 1 GM in NA CHLORIDE 0.9% 50 ML IVPB SCH (16:40)
[2022-05-21] MEDS ORDERED: ATORVASTATIN 20 MG TAB PO SCH (21:00)
[2022-05-22] MEDS: CEFAZOLIN 1 GM in NA CHLORIDE 0.9% 50 ML IVPB SCH ×2 (00:21→08:49)
[2022-05-22] MEDS ORDERED: Ringers Lactate 1,000 ML IV SCH (03:00)
[2022-05-22] MEDS: HYDROCODONE/APAP 7.5/325 MG TAB PO PRN ×3 (03:06→13:17)
[2022-05-22 04:17] LABS: Absolute Lymphocytes (CBC) 1.2 K/uL (0.7-4.9); MPV 9.6 fL (7.6-11.3); RBC Red Blood Cell Count 3.26 M/uL (3.86-4.86)
[2022-05-22 04:39] LABS: Potassium 4.5 mmol/L (3.5-5.1)
[2022-05-22] MEDS ORDERED: ENOXAPARIN 30 MG/0.3 ML SQ SCH (06:00)
[2022-05-22] MEDS ORDERED: LEVOTHYROXINE SOD 0.112 MG TAB PO SCH (06:30)
[2022-05-22] MEDS ORDERED: LEVOTHYROXINE SOD 0.025 MG TAB PO SCH (06:30)
[2022-05-22 07:13] LABS: Specific Gravity 1.016 (1.005-1.030); Urine Bilirubin NEGATIVE (Negative); Urine Blood Negative (Negative); Urine Clarity Clear (Clear); Urine Color Yellow (Yellow); Urine Glucose NEGATIVE (Negative); Urine Protein NEGATIVE (Negative); Urine Urobilinogen Normal (Normal)
[2022-05-22] MEDS ORDERED: HOME MED 1 EA UNK (Pregabalin [Pregabalin] 100 MG Capsule) PO SCH (09:00)
[2022-05-22] MEDS ORDERED: HOME MED 1 EA UNK (Mecobalamin [B12 Active] 1,000 MCG Tab.Chew) PO SCH (09:00)
[2022-05-22] MEDS ORDERED: HOME MED 1 EA UNK (Levothyroxine Sodium [Levothyroxine] 137 MCG Capsule) PO SCH (09:00)
[2022-05-22] MEDS ORDERED: CETIRIZINE HCL 5 MG TABLET PO SCH (09:00)
[2022-05-22] MEDS ORDERED: LIOTHYRONINE SOD 25 MCG TAB PO SCH (09:00)
[2022-05-22] MEDS ORDERED: OCUVITE (VIT A,C & E/LUTEIN/MINERAL) TABLET PO SCH (09:00)
[2022-05-22] MEDS ORDERED: METOPROLOL XL 50 MG TAB PO SCH (09:00)
[2022-05-22] MEDS ORDERED: VITAMIN D 1000 UNIT TAB PO SCH (09:00)
[2022-05-22] MEDS ORDERED: PREGABALIN 150 MG CAP PO SCH (09:00)
[2022-05-22] MEDS ORDERED: LOSARTAN POTASSIUM 50 MG TABLET PO SCH (09:00)
[2022-05-22] MEDS ORDERED: FUROSEMIDE 40 MG TABLET PO SCH (09:00)
[2022-05-22 10:37] VITALS: O2SAT 95
[2022-05-22 12:15] VITALS: BP 116/58; TEMP 98
--- NOTE | 2022-05-22 13:24 | P.DS ---
Admission Date: 05/21/22 Discharge Date: 05/22/22 Disposition: [place] HOME/HOME HEALTH CARE Discharge Condition: FAIR Reason for Admission: Left knee osteoarthritis\pain - Problems (1) Osteoarthritis Status: Acute (2) Total knee replacement status Status: Acute (3) Hypertension Status: Acute (4) Drug-induced hypotension Status: Acute (5) Acute renal failure Status: Acute Brief History of Present Illness: Patient is a 72-year-old female with past medical history significant for hypothyroidism, HLD, hypertension, peripheral neuropathy who presents for a planned procedure--left knee arthroplasty. Patient reported that she has been having osteoarthritis in bilateral knees for the past couple of years but pain became worse in the last couple of weeks. Patient underwent total knee replacement done by Dr. Bojorquez.hospitalist service consulted to assist with management of her medical problems. Hospital Course: Patient developed an episode of hypotension which is suspected to be secondary to her antihypertensives. Noted patient is on losartan and metoprolol for blood pressure control. Her metoprolol XL dose has been reduced from 50 mg daily to 25 mg daily. Her serum creatinine trended up. Patient was hydrated with IV Ringer's lactate. Repeat BMP showed decreasing creatinine. SANDRA almost resolved. Patient blood pressure has stabilized. She ambulated for several feet in the hallway with PT. Patient deemed okay to for discharge per Dr. Bojorquez. Vital Signs/Physical Exam: Temp Pulse Resp BP Pulse Ox 98.0 F 69 16 116/58 L 98 05/22/22 12:00 05/22/22 12:00 05/22/22 12:00 05/22/22 12:00 05/22/22 12:00 General: Alert, In no apparent distress, Oriented x3 HEENT: Mucous membr. moist/pink Neck: JVD not distended Respiratory: Clear to auscultation bilaterally, Normal air movement Cardiovascular: No edema, Regular rate/rhythm, Normal S1 S2 Gastrointestinal: Soft and benign, Non-distended, No tenderness Musculoskeletal: Other (Left knee in Tee wrap) Integumentary: No rashes, No cyanosis Neurological: Normal strength at 5/5 x4 extr Laboratory Data at Discharge: WBC 11.80 K/uL (4.3-10.9) H 05/22/22 03:59 Hgb 9.6 g/dL (12.0-15.0) L 05/22/22 03:59 Hct 28.0 % (36.0-45.0) L 05/22/22 03:59 Plt Count 226 K/uL (152-406) 05/22/22 03:59 PT 10.8 SECONDS (9.5-12.5) 05/16/22 08:54 INR 0.98 05/16/22 08:54 APTT 40.7 SECONDS (24.3-36.9) H 05/16/22 08:54 Sodium 132 mmol/L (136-145) L 05/22/22 03:59 Potassium 4.5 mmol/L (3.5-5.1) 05/22/22 03:59 BUN 40 mg/dL (7-18) H 05/22/22 03:59 Creatinine 1.84 mg/dL (0.55-1.02) H 05/22/22 03:59 Glucose 170 mg/dL (74-106) H 05/22/22 03:59 Phosphorus 4.3 mg/dL (2.5-4.9) 05/21/22 13:17 Magnesium 2.2 mg/dL (1.6-2.4) 05/21/22 13:17 Total Bilirubin 0.7 mg/dL (0.2-1.0) 05/16/22 08:54 AST 34 U/L (15-37) 05/16/22 08:54 ALT 44 U/L (13-56) 05/16/22 08:54 Alkaline Phosphatase 141 U/L (45-117) H 05/16/22 08:54 Home Medications: Atorvastatin Calcium [Lipitor*] 20 mg PO BEDTIME 05/16/22 Furosemide [Lasix] 40 mg PO DAILY 05/16/22 Losartan Potassium 100 mg PO DAILY 05/16/22 Pregabalin 3 tab PO DAILY 05/16/22 Levothyroxine Sodium [Levothyroxine] 137 mcg PO DAILY 05/21/22 Liothyronine Sodium [Cytomel] 10 mcg PO DAILY 05/21/22 Cetirizine HCl [Zyrtec*] 10 mg PO DAILY 05/22/22 Cholecalciferol (Vitamin D3) [Vitamin D 1000 Iu Tab*] 1,000 unit PO DAILY tab 05/22/22 Docusate [Colace Cap*] 200 mg PO DAILY PRN #30 cap 05/22/22 Hydrocodone 7.5/APAP 325 [[place] 7.5/325 mg*] 1 tab PO Q4H PRN #30 tab 05/22/22 Levothyroxine [Synthroid*] 0.112 mg PO DAILYAC tab 05/22/22 Liothyronine [Cytomel*] 25 mcg PO DAILY tab 05/22/22 Mecobalamin [B12 Active] 1,000 mcg PO DAILY 05/22/22 Metoprolol Succinate [Toprol Xl] 25 mg PO DAILY #30 tab 05/22/22 Pregabalin [Lyrica] 300 mg PO DAILY #30 cap 05/22/22 Vit A,C & E/Lutein/Minerals [Ocuvite Tablet] 2 tab PO DAILY 05/22/22 New Medications: Docusate [Colace Cap*] 200 mg PO DAILY PRN #30 cap PRN Reason: Constipation Pregabalin [Lyrica] 300 mg PO DAILY #30 cap Hydrocodone 7.5/APAP 325 [[place] 7.5/325 mg*] 1 tab PO Q4H PRN #30 tab PRN Reason: Pain Scale 5-7 (Moderate) Metoprolol Succinate [Toprol Xl] 25 mg PO DAILY #30 tab Physician Discharge Instructions: Please change to aquacel dressing prior to D/C. Change only as needed. F/U Dr. Bojorquez office approx. 2 weeks (already scheduled). Diet: AHA Activity: Fall precautions Followup: Niall Pederson MD [Primary Care Provider] - Abhay Bojorquez MD [ACTIVE - CAN ADMIT] -
[2022-05-22 13:25] LABS: Potassium 4.3 mmol/L (3.5-5.1)
== END 2022-05-22 14:03 | disposition home health service (06) ==
LOC: OR 05:56 → INTOOBSV 10:40 → 2ND 10:40
PROVIDERS: ADMIT Orthopaedic Surgery; ATTEND Orthopaedic Surgery
PROC: 0SRD069 Replacement of Left Knee Joint with Oxidized Zirconium on Polyethylene Synthetic Substitute, Cemented, Open Approach (ICD-10-PCS; principal; 2022-05-21 07:00)
DX: M17.12 Unilateral primary osteoarthritis, left knee (principal); I10 Essential (primary) hypertension; I95.2 Hypotension due to drugs; N17.9 Acute kidney failure, unspecified; E03.9 Hypothyroidism, unspecified; E78.5 Hyperlipidemia, unspecified; G62.9 Polyneuropathy, unspecified; Z20.822 Contact with and (suspected) exposure to COVID-19
CPT/HCPCS: 85025 ×2; 80048 ×2; 36415 ×4; 86900; 83735; 86850; 84100; 85610; 86901; 88305; 88311; 85730; 81003 ×2; 80053; 71046; 97116 ×2; 97139; 97161; 97530 ×2; 94010; 87811; 27447; J2704; J0171; J2001 ×2; J1650; J2250; J3010; J1100 ×2; A4216 ×2; J1170; J7120 ×3; J2405; J0690 ×3; 88304; G0378; G0379

== ENCOUNTER → 2023-04-05 | Emergency (ER) | payer OTHER ==
[2023-04-05 12:24] LABS: Absolute Lymphocytes (CBC) 2.3 K/uL (0.7-4.9); Hematocrit 35.3 % (36.0-45.0); Lymphocytes % 28.3 % (15.3-44.8); MCV 83.8 fL (80-100); MPV 8.5 fL (7.6-11.3); Platelets 340 thou/uL (152-406); RBC Red Blood Cell Count 4.22 M/uL (3.86-4.86)
[2023-04-05 12:41] LABS: Potassium 3.9 mEq/L (3.5-5.1); Troponin High Sensitivity 6.2 pg/mL (<58.9)
--- NOTE | 2023-04-05 13:27 | RAD REPORT ---
EXAM DESCRIPTION: RAD - Chest Single View - 04/05/2023 1:19 pm CLINICAL HISTORY: COUGH Chest pain. COMPARISON: Chest Pa And Lat (2 Views) dated 05/16/2022; Chest Pa And Lat (2 Views) dated 12/23/2019; Chest Pa And Lat (2 Views) dated 04/23/2017 FINDINGS: Portable technique limits examination quality. Interstitial markings are mildly prominent which is nonspecific but may indicate viral infection or m ild interstitial edema. No focal consolidation typical of bacterial pneumonia seen. The heart is uppe r limit of normal in size. No displaced fractures.
--- NOTE | 2023-04-05 13:54 | EDPHYS ---
Physician Documentation [facility] Name: Jamila Gardiner Age: 73 yrs Sex: Female : 1950 Arrival Date: 04/05/2023 Time: 11:40 Bed 5 Private MD: ED Physician José Manuel Schwarz HPI: 04/05 11:58 This 73 yrs old Female presents to ER via Ambulatory with complaints of ec2 Cough, Congestion, Wheezing > 1 Year. 11:58 Patient arrives today for 2 weeks of symptoms. Patient states that she is having cough ec2 and cold symptoms ongoing for that timeframe, states that the cough has persisted which will prompted evaluation today patient reports no fevers or chills, no nausea or vomiting, denies any diarrhea symptoms, states that she does have a thick productive sputum. States that she was seen previously, had prescriptions for albuterol as well as steroids and azithromycin. Patient reports symptoms have persisted despite these interventions.. Historical: - Allergies: 11:55 No Known Allergies; cm10 - PMHx: 11:55 Hypertensive disorder; Hypercholesterolemia; "leakage around valve"; cm10 - Immunization history:: Adult Immunizations up to date, Flu vaccine is up to date. - Social history:: Smoking status: Patient denies any tobacco usage or history of. ROS: 11:58 Constitutional: as per hpi ec2 Exam: 11:58 Constitutional: GEN: NAD Head: atraumatic Eyes: EOMI Ears: External ears are ec2 normal. CV: regular rate LUNGS: no respiratory distress, scattered wheezes noted throughout all lung laws, no focal lung deficits. No tachypnea noted. ABD: non-distended SKIN: no evidence of rashes MSK: no evidence of trauma NEURO: moves all extremities equally Vital Signs: 11:54 BP 144 / 55; Pulse 84; Resp 16; Temp 97.5; Pulse Ox 94% ; Weight 79.38 kg; Height 5 ft. cm10 2 in. ; Pain 7/10; 12:17 BP 101 / 75; Pulse 78; Resp 18; Pulse Ox 97% on R/A; ph 13:29 BP 113 / 58; Pulse 76; Pulse Ox 95% on R/A; ap3 11:54 Body Mass Index 32.01 (79.38 kg, 157.48 cm) cm10 11:54 Pain Scale: Adult cm10 MDM: 11:57 Patient medically screened. ec2 11:58 Data reviewed: vital signs. ED course: Patient arrives today for complaints of ec2 persistent cough and cold symptoms. Examination remarkable for well-appearing nontoxic individual is otherwise in no acute distress with pulmonary findings as noted above. Will obtain lab work and a chest x-ray for further assessment of the patient complaint. Currently considering processes of viral infection, CHF, pneumonia.. 12:16 ED course: EKG independently reviewed and interpreted by me, shows normal sinus rhythm, ec2 rate 75, no acute ST segment elevations, intervals are nonconcerning.. 12:47 ED course: Metabolic profile is reassuring. CBC is reassuring, BNP minimally elevated, ec2 troponin within normal ranges. . 13:41 ED course: Chest x-ray shows increased vascular congestion when compared to previous. ec2 Does have slightly elevated BNP. Will start on a couple days of Lasix as antibiotics in the past have not helped with this, possible patient has some component of volume overload causing her symptoms. Will discharge home. Return precautions given.. 13:53 ED course: Of note patient on Lasix already, instructed her to go from daily to twice ec2 daily.. 04/05 11:58 Order name: Basic Metabolic Panel; Complete Time: 12:47 ec2 04/05 11:58 Order name: CBC with Diff; Complete Time: 12:47 ec2 04/05 11:58 Order name: NT PRO-BNP; Complete Time: 12:47 ec2 04/05 11:58 Order name: Troponin HS; Complete Time: 12:47 ec2 04/05 11:58 Order name: XRAY Chest (1 view); Complete Time: 13:40 ec2 04/05 11:58 Order name: EKG; Complete Time: 11:58 ec2 04/05 11:58 Order name: Cardiac monitoring; Complete Time: 12:14 ec2 04/05 11:58 Order name: EKG - Nurse/Tech; Complete Time: 12:14 ec2 04/05 11:58 Order name: IV Saline Lock; Complete Time: 12:15 ec2 04/05 11:58 Order name: Labs collected and sent; Complete Time: 12:15 ec2 04/05 11:58 Order name: O2 Per Protocol; Complete Time: 12:05 ec2 04/05 11:58 Order name: O2 Sat Monitoring; Complete Time: 12:05 ec2 Administered Medications: No medications were administered Disposition Summary: 04/05/23 13:53 Discharge Ordered Notes: Location: Home ec2 Condition: Stable ec2 Diagnosis - Volume Overload ec2 Followup: ec2 - With: Private Physician - When: - Reason: Recheck today's complaints Discharge Instructions: - Discharge Summary Sheet ec2 - Heart Failure Exacerbation ec2 Forms: - Medication Reconciliation Form ec2 - Thank You Letter ec2 - Antibiotic Education ec2 - Prescription Opioid Use ec2 - Patient Portal Instructions ec2 - Leadership Thank You Letter ec2 Signatures: Dispatcher [employer] Xochilt Resendez RN RN cm10 José Manuel Schwarz MD MD ec2
--- NOTE | 2023-04-05 13:54 | ER ---
Nurse's Notes [facility] Name: Jamila Gardiner Age: 73 yrs Sex: Female : 1950 Arrival Date: 04/05/2023 Time: 11:40 Bed 5 Private MD: Diagnosis: Volume Overload Presentation: 04/05 11:54 Chief complaint: Patient states: Diagnosed with Bronchitis 03/26 and has not improved. cm10 Pt states that 2 days ago her cough got worse. Pt reports having a productive cough. Pt reports pain to back and chest with cough. No fevers. Coronavirus screen: Vaccine status: Patient reports receiving the 2nd dose of the covid vaccine. Client denies travel out of the [place] in the last 14 days. Ebola Screen: Patient denies travel to an Ebola-affected area in the 21 days before illness onset. No symptoms or risks identified at this time. Resp Distress? No respiratory distress is noted at this time. Initial Sepsis Screen: Does the patient meet any 2 criteria? No. Patient's initial sepsis screen is negative. Does the patient have a suspected source of infection? No. Patient's initial sepsis screen is negative. Risk Assessment: Do you want to hurt yourself or someone else? Patient reports no desire to harm self or others. Onset of symptoms was April 05, 2023. 11:54 Method Of Arrival: Ambulatory 10 11:54 Acuity: JOSHUA 3 cm10 Triage Assessment: 14:08 Respiratory: ap3 Historical: - Allergies: 11:55 No Known Allergies; cm10 - PMHx: 11:55 Hypertensive disorder; Hypercholesterolemia; "leakage around valve"; cm10 - Immunization history:: Adult Immunizations up to date, Flu vaccine is up to date. - Social history:: Smoking status: Patient denies any tobacco usage or history of. Screenin:15 Abuse screen: Denies threats or abuse. Nutritional screening: No deficits noted. ap3 Tuberculosis screening: No symptoms or risk factors identified. 12:17 [facility] ED Fall Risk Assessment (Adult) History of falling in the last 3 months, ph including since admission No falls in past 3 months (0 pts) Score/Fall Risk Level 0 - 2 = Low Risk Oriented to surroundings, Maintained a safe environment, Provided non-skid footwear, Hourly rounding (assess needs \\T\\ fall precautionary measures) done. Assessment: 12:15 General: Appears in no apparent distress. comfortable, well groomed, Behavior is calm, ph cooperative, appropriate for age, Denies fever. Pain: Denies pain. Neuro: Level of Consciousness is awake, alert, obeys commands, Oriented to person, place, time, situation. Cardiovascular: Reports shortness of breath, Denies chest pain, Capillary refill < 3 seconds Patient's skin is warm and dry. Respiratory: Reports shortness of breath cough that is productive, Airway is patent Respiratory effort is even, unlabored, Respiratory pattern is regular, symmetrical. GI: No signs and/or symptoms were reported involving the gastrointestinal system. Derm: Skin is pink, warm \\T\\ dry. Musculoskeletal: Circulation, motion, and sensation intact. Range of motion: intact in all extremities. Vital Signs: 11:54 BP 144 / 55; Pulse 84; Resp 16; Temp 97.5; Pulse Ox 94% ; Weight 79.38 kg; Height 5 ft. cm10 2 in. ; Pain 7/10; 12:17 BP 101 / 75; Pulse 78; Resp 18; Pulse Ox 97% on R/A; ph 13:29 BP 113 / 58; Pulse 76; Pulse Ox 95% on R/A; ap3 11:54 Body Mass Index 32.01 (79.38 kg, 157.48 cm) cm10 11:54 Pain Scale: Adult cm10 Vitals: 12:17 Cardiac Rhythm Assessment Sinus rhythm. ph ED Course: 11:44 Patient arrived in ED. im 11:45 José Manuel Schwarz MD is Attending Physician. ec2 11:55 Triage completed. cm10 11:56 Arm band placed on Patient placed in an exam room, on a stretcher. cm10 12:04 Jamila Jesus, RN is Primary Nurse. ph 12:15 Patient has correct armband on for positive identification. Placed in gown. Bed in low ap3 position. Call light in reach. Side rails up X2. pvc monitor on. Pulse ox on. NIBP on. 12:15 EKG done, by ED staff, reviewed by José Manuel Schwarz MD. ap3 12:16 Initial lab(s) drawn, by fl, sent to lab. Inserted saline lock: 20 gauge in right ph antecubital area, using aseptic technique. Blood collected. 13:21 XRAY Chest (1 view) In Process Unspecified. EDMS 14:08 No provider procedures requiring assistance completed. IV discontinued, intact, ap3 bleeding controlled, No redness/swelling at site. Pressure dressing applied. 14:09 Provided Education on: discharge instructions. ap3 Administered Medications: No medications were administered Medication: 12:15 VIS not applicable for this client. ap3 Outcome: 13:53 Discharge ordered by MD. ec2 14:08 Discharged to home ambulatory, with family, ap3 14:08 Condition: good 14:08 Discharge instructions given to patient, family, Instructed on discharge instructions, follow up and referral plans. Demonstrated understanding of instructions, follow-up care, 14:13 Patient left the ED. ap3 Signatures: Dispatcher [employer] Jamila Morales RN RN ph Marilyn Piedra RN RN ap3 Montserrat [place] Clarissa RN RN cm10 José Manuel Schwarz MD MD ec2 Corrections: (The following items were deleted from the chart) 12:38 12:37 Inserted saline lock: 20 gauge in right forearm, using aseptic technique. ph ph 12:38 12:30 First set of blood cultures drawn by fl, ph ph
[2023-04-05 14:29] VITALS: TEMP 97.5
[2023-04-05 14:41] VITALS: BP 113/58; O2SAT 95
--- NOTE | 2023-04-07 12:26 | EKG ---
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
== END ==
LOC: ER 11:40
DX: E87.70 Fluid overload, unspecified (principal); I10 Essential (primary) hypertension
CPT/HCPCS: 36415; 71045; 80048; 83880; 84484; 85025; 93005; 99284